=== PATIENT | male | born 1945 | race American Indian/Alaskan Native ===

== ENCOUNTER 2016-11-03 09:23 | Outpatient (CLI) | payer MEDICARE ==
--- NOTE | 2016-11-03 10:48 | Mammography Report ---
BONE DENSITY STUDY: DEFINITIONS: BMD = Bone Mineral Density T-score = BMD related to mean peak bone mass of young adult (mean expressed in Standard Deviation) Z-score = Age matched BMD expressed in SD World Health Organization (WHO) Diagnostic Criteria Normal T-score > -1 SD Osteopenia T-score between -1 and -2.4 SD Osteoporosis T-score -2.5 SD or below FINDINGS: The weighted average BMD of lumbar spine L1-L4 is 1.281 with a T-score of 1.7. The weighted average BMD of hip is 1.047 with a T-score of 0.1. IMPRESSION: The patient's T-score is diagnostic for normal bone density and low relative risk for fracture. NOTE: BMD is not the only risk factor for fracture; also consider factors such as the patient's age, risk of falling, previous osteoporotic fracture, family history of osteoporotic fractures, current smoker, and low body weight. Madison's triangle is a region of interest in femur, predominantly of trabecular bone. It is not a true anatomic site, and [facility] does not recommend its use clinically.
== END 2016-11-03 09:24 | disposition home or self-care (01) ==
LOC: MAMMO 09:23
DX: Z13.820 Encounter for screening for osteoporosis (principal)
CPT/HCPCS: 77080

== ENCOUNTER 2019-04-04 13:58 | Inpatient (IN) | payer MEDICARE ==
--- NOTE | 2019-04-04 14:20 | Emergency Department Report ---
ED Syncope HPI - General Stated Complaint: SYNCOPE Time Seen by Provider: 04/04/19 14:12 Source: patient, EMS Exam Limitations: no limitations - History of Present Illness Initial Comments: Patient is a 74-year-old male that presents emergency room with complaints of syncopal episode. Patient states he was at his rehabilitation facility and participating in rehabilitation. Patient states as he was walking with a walker, he became dizzy and lightheaded and passed out. Patient denies chest pain before and after syncopal episode. Patient states syncopal episode was brief. Patient states he was also diaphoretic. Patient denies symptoms at this time. Patient states he is back to normal. Patient denies chest pain shortness of breath. Timing/Prior Episodes: no prior history, single episode today Precipitating Factors: Positive: diaphoresis, lightheadedness Context: activity Loss of Consciousness: brief (seconds) Current Symptoms: back to normal - Related Data Allergies/Adverse Reactions: Allergies No Known Allergies Allergy (Verified 06/28/14 18:10) Home Medications: Ambulatory Orders Lisinopril [Zestril TAB] 40 mg PO QDAY #30 tablet 11/03/15 Beclomethasone Dipropionate [Qvar] 40 mcg IH Q4-6H PRN 05/09/16 Bupropion HCl [Bupropion HCl Sr] 150 mg PO BID 05/09/16 Fluticasone (Nf) [Flovent 44 MCG/PUFF HFA] 1 puff IH Q4-6H PRN 05/09/16 Pravastatin Sodium [Pravastatin] 20 mg PO QHS 05/09/16 amLODIPine [Norvasc] 10 mg PO DAILY 05/09/16 hydroCHLOROthiazide [HCTZ] 25 mg PO QDAY 05/09/16 traMADol [Ultram 50 MG tab] 50 mg PO Q6HR PRN #20 tablet 05/09/16 ED Review of Systems ROS: Stated complaint: SYNCOPE Other details as noted in HPI Constitutional: denies: chills, fever Eyes: denies: eye pain, eye discharge, vision change ENT: denies: ear pain, throat pain Respiratory: denies: cough, shortness of breath, wheezing Cardiovascular: denies: chest pain, palpitations Endocrine: no symptoms reported Gastrointestinal: denies: abdominal pain, nausea, diarrhea Genitourinary: denies: urgency, dysuria Musculoskeletal: denies: back pain, joint swelling, arthralgia Skin: denies: rash, lesions Neurological: denies: headache, weakness, paresthesias Psychiatric: denies: anxiety, depression Hematological/Lymphatic: denies: easy bleeding, easy bruising ED Past Medical Hx - Past Medical History Previous Medical History?: Yes Hx Hypertension: Yes Hx Diabetes: Yes Hx GERD: Yes Hx Renal Disease: Yes (renal insufficiency) Hx Arthritis: Yes (BOTH KNEES) Hx Asthma: Yes Hx Tuberculosis: Yes (POSITIVE SKIN TEST 1989- [place]- NEG CXR) - Surgical History Past Surgical History?: Yes Additional Surgical History: STAB TO ABD--EXPLORATORY - Family History Family history: no significant - Social History Smoking Status: Never Smoker Substance Use Type: None - Medications Home Medications: Home Medications Medication Instructions Recorded Confirmed Last Taken Type Lisinopril [Zestril TAB] 40 mg PO QDAY #30 tablet 11/03/15 05/09/16 12/31/15 Rx Beclomethasone Dipropionate [Qvar] 40 mcg IH Q4-6H PRN 05/09/16 05/09/16 Unknown History Bupropion HCl [Bupropion HCl Sr] 150 mg PO BID 05/09/16 05/09/16 Unknown History Fluticasone (Nf) [Flovent 44 1 puff IH Q4-6H PRN 05/09/16 05/09/16 Unknown History MCG/PUFF HFA] Pravastatin Sodium [Pravastatin] 20 mg PO QHS 05/09/16 05/09/16 Unknown History amLODIPine [Norvasc] 10 mg PO DAILY 05/09/16 05/09/16 Unknown History hydroCHLOROthiazide [HCTZ] 25 mg PO QDAY 05/09/16 05/09/16 Unknown History traMADol [Ultram 50 MG tab] 50 mg PO Q6HR PRN #20 tablet 05/09/16 Unknown Rx ED Physical Exam - General Limitations: No Limitations General appearance: alert, in no apparent distress - Head Head exam: Present: atraumatic, normocephalic - Eye Eye exam: Present: normal appearance, PERRL Pupils: Present: normal accommodation - ENT ENT exam: Present: mucous membranes moist - Neck Neck exam: Present: normal inspection - Respiratory Respiratory exam: Present: normal lung sounds bilaterally. Absent: respiratory distress, wheezes, rales - Cardiovascular Cardiovascular Exam: Present: regular rate, normal rhythm, normal heart sounds. Absent: systolic murmur, diastolic murmur, rubs, gallop - GI/Abdominal GI/Abdominal exam: Present: soft, normal bowel sounds - Rectal Rectal exam: Present: deferred - Extremities Exam Extremities exam: Present: normal inspection - Back Exam Back exam: Present: normal inspection - Neurological Exam Neurological exam: Present: alert, oriented X3 - Psychiatric Psychiatric exam: Present: normal affect, normal mood - Skin Skin exam: Present: warm, dry, intact, normal color. Absent: rash ED Course Vital Signs 04/04/19 04/04/19 04/04/19 14:22 14:52 15:22 Temperature 97.7 F Pulse Rate 95 H 86 Respiratory 20 20 15 Rate Blood Pressure 125/74 Blood Pressure 115/83 [Left] O2 Sat by Pulse 96 98 95 Oximetry 04/04/19 04/04/19 04/04/19 15:30 15:40 15:50 Temperature Pulse Rate 90 87 84 Respiratory 17 18 17 Rate Blood Pressure 115/83 115/83 115/83 Blood Pressure [Left] O2 Sat by Pulse 98 100 100 Oximetry 04/04/19 04/04/19 04/04/19 16:00 16:10 16:20 Temperature Pulse Rate 88 90 84 Respiratory 19 17 17 Rate Blood Pressure 115/83 137/87 137/87 Blood Pressure [Left] O2 Sat by Pulse 97 98 99 Oximetry 04/04/19 04/04/19 04/04/19 16:30 16:40 16:50 Temperature Pulse Rate 91 H 92 H 90 Respiratory 20 18 12 Rate Blood Pressure 137/87 137/87 137/87 Blood Pressure [Left] O2 Sat by Pulse 96 96 97 Oximetry 04/04/19 04/04/19 04/04/19 17:00 17:10 17:20 Temperature Pulse Rate 87 89 89 Respiratory 13 18 18 Rate Blood Pressure 137/87 146/92 146/92 Blood Pressure [Left] O2 Sat by Pulse 98 97 97 Oximetry 04/04/19 04/04/19 04/04/19 17:30 17:40 17:50 Temperature Pulse Rate 90 89 90 Respiratory 19 16 14 Rate Blood Pressure 146/92 146/92 146/92 Blood Pressure [Left] O2 Sat by Pulse 96 96 95 Oximetry 04/04/19 04/04/19 04/04/19 18:00 18:10 18:20 Temperature Pulse Rate 90 86 89 Respiratory 19 19 19 Rate Blood Pressure 146/92 147/87 147/87 Blood Pressure [Left] O2 Sat by Pulse 94 94 92 Oximetry 04/04/19 04/04/19 04/04/19 18:30 19:15 19:16 Temperature 98 F Pulse Rate 88 81 Respiratory 14 21 Rate Blood Pressure 147/87 147/87 Blood Pressure 131/100 [Left] O2 Sat by Pulse 91 97 98 Oximetry 04/04/19 04/04/19 04/04/19 19:20 19:30 19:40 Temperature Pulse Rate 86 85 83 Respiratory 21 17 20 Rate Blood Pressure 131/101 147/89 147/89 Blood Pressure [Left] O2 Sat by Pulse 97 96 96 Oximetry 04/04/19 04/04/19 04/04/19 19:50 20:00 20:10 Temperature Pulse Rate 87 88 83 Respiratory 20 21 20 Rate Blood Pressure 147/89 151/90 151/90 Blood Pressure [Left] O2 Sat by Pulse 95 94 95 Oximetry - Reevaluation(s) Reevaluation #1: I discussed all results with patient. I discussed plan of care with patient. Patient agrees plan of care and admission. Patient's nuclear scan is pending. Patient will be admitted to the hospital service. 04/04/19 17:43 - Consultations Consultation #1: Hospitalist consult for admission. Hospitalist admit patient. Bridge orders placed 04/04/19 17:44 ED Medical Decision Making - Lab Data Result diagrams: 04/04/19 14:27 04/04/19 14:27 - EKG Data -: EKG Interpreted by Me EKG shows normal: sinus rhythm, axis, intervals, QRS complexes, ST-T waves Rate: normal - Radiology Data Radiology results: report reviewed, image reviewed interpreted by me: No acute findings on chest x-ray. CT HEAD WITHOUT CONTRAST HISTORY: Syncope. TECHNIQUE: Axial imaging performed from the skull apex through the skull base without the use of contrast. All CT scans at this location are performed using CT dose reduction for ALARA by means of automated exposure control. COMPARISON: None FINDINGS: Parenchyma: No acute intracranial hemorrhage or parenchymal abnormality.. Mild hypoattenuation throughout the white matter is noted and consistent with chronic microvascular ischemic disease. Ventricles: There is mild diffuse brain atrophy with commensurate ventricular enlargement which is likely age appropriate. Soft tissues: Soft tissues including the orbits appear normal. Bones: No acute osseous abnormality. Sinuses: Sinuses and mastoid air cells are clear. IMPRESSION: No acute abnormality. Senescent changes. CHEST 1 VIEW INDICATION: Syncope. COMPARISON: None FINDINGS: Support devices: None. Heart: Within normal limits. Lungs/Pleura: No acute air space or interstitial disease. Additional findings: None. IMPRESSION: No acute findings. V/Q Scan HISTORY: syncope. elevated d-dimer. TECHNIQUE: Patient was given 17.99 mCi of xenon-133 and 3.33 mCi of technetium MAA. COMPARISON: Chest x-ray from today FINDINGS: No significant mismatch between ventilation and perfusion imaging. IMPRESSION: Low probability for PTE. - Medical Decision Making STEFANIE is a 74-year-old male that presents emergency room with complaints of syncope. Patient had multiple labs and diagnostics none. Patient's head CT negative. Patient's chest x-ray negative. Patient's labs remarkable for kidney insufficiency and elevated troponin elevated d-dimer. For the patient's elevated d-dimer a nuclear V/Q scan was done and it was negative. Patient admitted to the hospitalist service. - Differential Diagnosis PE. Syncope. Dehydration. Renal insufficiency Critical Care Time: Yes Critical care time in (mins) excluding proc time.: 35 Critical care attestation.: If time is entered above; I have spent that time in minutes in the direct care of this critically ill patient, excluding procedure time. Critical Care Time: 35 minutes ED Disposition Clinical Impression: Acute on chronic renal insufficiency, Dizziness, Elevated troponin, Elevated d- dimer, Dehydration CKD (chronic kidney disease) Qualifiers: Chronic kidney disease stage: unspecified stage Qualified Code(s): N18.9 - Chronic kidney disease, unspecified Syncope Qualifiers: Syncope type: unspecified Qualified Code(s): R55 - Syncope and collapse Disposition: OP ADMIT IP TO THIS HOSP Is pt being admited?: Yes Does the pt Need Aspirin: No Condition: Critical Time of Disposition: 17:43
--- NOTE | 2019-04-04 15:13 | XRay Report ---
CHEST 1 VIEW INDICATION: Syncope. COMPARISON: None FINDINGS: Support devices: None. Heart: Within normal limits. Lungs/Pleura: No acute air space or interstitial disease. Additional findings: None. IMPRESSION: No acute findings. Signer Name: Mehdi Avalos Jr, MD Signed: 04/04/2019 3:09 PM Workstation Name: [id number]
[2019-04-04 15:16] LABS: Creatine Kinase MB 6.8 ng/mL (0.0-4.0)
[2019-04-04 15:17] LABS: Albumin 3.1 g/dL (3.9-5); Calcium 9.5 mg/dL (8.4-10.2)
[2019-04-04 15:19] LABS: Basophils # (Auto) 0.1 K/mm3 (0.0-0.1); Eosinophils # (Auto) 0.1 K/mm3 (0.0-0.4); Eosinophils % (Auto) 2.5 % (0.0-4.3); Hematocrit 33.6 % (35.5-45.6); Hemoglobin 10.5 gm/dl (11.8-15.2); Lymphocytes # (Auto) 0.9 K/mm3 (1.2-5.4); Lymphocytes % (Auto) 15.7 % (13.4-35.0); Mean Corpuscular HGB Conc 31 % (32-34); Mean Corpuscular Volume 76 fl (84-94); Monocytes # (Auto) 0.6 K/mm3 (0.0-0.8); Monocytes % (Auto) 11.4 % (0.0-7.3); Platelet Count 411 K/mm3 (140-440); Red Blood Count 4.42 M/mm3 (3.65-5.03); Red Cell Distribution Width 18.2 % (13.2-15.2)
--- NOTE | 2019-04-04 15:27 | Cat Scan Report ---
CT HEAD WITHOUT CONTRAST HISTORY: Syncope. TECHNIQUE: Axial imaging performed from the skull apex through the skull base without the use of con trast. All CT scans at this location are performed using CT dose reduction for ALARA by means of aut omated exposure control. COMPARISON: None FINDINGS: Parenchyma: No acute intracranial hemorrhage or parenchymal abnormality.. Mild hypoattenuation thro ughout the white matter is noted and consistent with chronic microvascular ischemic disease. Ventricles: There is mild diffuse brain atrophy with commensurate ventricular enlargement which is l ikely age appropriate. Soft tissues: Soft tissues including the orbits appear normal. Bones: No acute osseous abnormality. Sinuses: Sinuses and mastoid air cells are clear. IMPRESSION: No acute abnormality. Senescent changes. Signer Name: Mehdi Avalos Jr, MD Signed: 04/04/2019 3:22 PM Workstation Name: [id number]
[2019-04-04 15:28] LABS: Chol/HDL Ratio 4.96 %
[2019-04-04] MEDS ORDERED: DEXTROSE 50% IN WATER (25GM) 50 ML SYRINGE IV ONE (16:29)
--- NOTE | 2019-04-04 19:08 | Nuclear Medicine Report ---
V/Q Scan HISTORY: syncope. elevated d-dimer. TECHNIQUE: Patient was given 17.99 mCi of xenon-133 and 3.33 mCi of technetium MAA. COMPARISON: Chest x-ray from today FINDINGS: No significant mismatch between ventilation and perfusion imaging. IMPRESSION: Low probability for PTE. Signer Name: Junior Alfredo MD Signed: 04/04/2019 7:03 PM Workstation Name: [id number]
[2019-04-04] MEDS ORDERED: FLUTICASONE IH PRN (20:41)
[2019-04-04] MEDS ORDERED: BECLOMETHASONE DIPROPIONATE 40 MCG IH PRN (20:41)
[2019-04-04] MEDS ORDERED: BUPROPION HCL 150 MG PO SCH (22:00)
[2019-04-04] MEDS ORDERED: NON-FORMULARY EACH (Pravastatin Sodium [Pravastatin] 20 MG) PO SCH (22:00)
[2019-04-04] MEDS: traMADol 50 MG TAB PO PRN (22:01)
[2019-04-04] MEDS: hydroCHLOROthiazide 25 MG TAB PO SCH (22:01)
[2019-04-04] MEDS: LISINOPRIL 40 MG TAB PO SCH (22:02)
[2019-04-04] MEDS: PRAVASTATIN 20 MG TAB PO SCH (22:02)
[2019-04-04] MEDS: buPROPion SR 150 MG TAB PO SCH (22:02)
[2019-04-04] MEDS: amLODIPine 10 MG TAB PO SCH (22:05)
--- NOTE | 2019-04-05 05:29 | History and Physical Report ---
History of Present Illness Date of examination: 04/04/19 Date of admission: 04/04/19 18:29 Chief complaint: Syncopal episode one hour ago History of present illness: 74-year-old male that presents emergency room with complaints of syncopal episode. Patient states he was at his rehabilitation facility and participating in rehabilitation. Patient states as he was walking with a walker, he became dizzy and lightheaded and passed out. Patient denies chest pain before and after syncopal episode. Patient states syncopal episode was brief. Patient states he was also diaphoretic. Patient denies symptoms at this time. Patient states he is back to normal. Patient denies chest pain shortness of breath. Past Medical History Previous Medical History?: Yes Hypertension: Yes Diabetes: Yes GERD: Yes Renal Disease: Yes (renal insufficiency) Arthritis: Yes (BOTH KNEES) Asthma: Yes Tuberculosis: Yes (POSITIVE SKIN TEST [place]- NEG CXR) Surgical History Past Surgical History?: Yes Additional Surgical History: STAB TO ABD--EXPLORATORY Family History Family history: no significant Social History Smoking Status: Never Smoker Substance Use Type: None Medications Home Medications: Home Medications Medication Instructions Recorded Confirmed Last Taken Type Lisinopril [Zestril TAB] 40 mg PO QDAY #30 tablet 11/03/15 05/09/16 12/31/15 Rx Beclomethasone Dipropionate [Qvar] 40 mcg IH Q4-6H PRN 05/09/16 05/09/16 Unknown History Bupropion HCl [Bupropion HCl Sr] 150 mg PO BID 05/09/16 05/09/16 Unknown History Fluticasone (Nf) [Flovent 44 1 puff IH Q4-6H PRN 05/09/16 05/09/16 Unknown History MCG/PUFF HFA] Pravastatin Sodium [Pravastatin] 20 mg PO QHS 05/09/16 05/09/16 Unknown History amLODIPine [Norvasc] 10 mg PO DAILY 05/09/16 05/09/16 Unknown History hydroCHLOROthiazide [HCTZ] 25 mg PO QDAY 05/09/16 05/09/16 Unknown History traMADol [Ultram 50 MG tab] 50 mg PO Q6HR PRN #20 tablet 05/09/16 Unknown Rx Review of Systems ROS: Stated complaint: SYNCOPE Other details as noted in HPI Constitutional: denies: chills, fever Eyes: denies: eye pain, eye discharge, vision change ENT: denies: ear pain, throat pain Respiratory: denies: cough, shortness of breath, wheezing Cardiovascular: denies: chest pain, palpitations Endocrine: no symptoms reported Gastrointestinal: denies: abdominal pain, nausea, diarrhea Genitourinary: denies: urgency, dysuria Musculoskeletal: denies: back pain, joint swelling, arthralgia Skin: denies: rash, lesions Neurological: denies: headache, weakness, paresthesias Psychiatric: denies: anxiety, depression Hematological/Lymphatic: denies: easy bleeding, easy bruising Medications and Allergies Allergies Allergy/AdvReac Type Severity Reaction Status Date / Time No Known Allergies Allergy Verified 06/28/14 18:10 Home Medications Medication Instructions Recorded Confirmed Last Taken Type Lisinopril [Zestril TAB] 40 mg PO QDAY #30 tablet 11/03/15 05/09/16 12/31/15 Rx Beclomethasone Dipropionate [Qvar] 40 mcg IH Q4-6H PRN 05/09/16 05/09/16 Unknown History Bupropion HCl [Bupropion HCl Sr] 150 mg PO BID 05/09/16 05/09/16 Unknown History Fluticasone (Nf) [Flovent 44 1 puff IH Q4-6H PRN 05/09/16 05/09/16 Unknown History MCG/PUFF HFA] Pravastatin Sodium [Pravastatin] 20 mg PO QHS 05/09/16 05/09/16 Unknown History amLODIPine [Norvasc] 10 mg PO DAILY 05/09/16 05/09/16 Unknown History hydroCHLOROthiazide [HCTZ] 25 mg PO QDAY 05/09/16 05/09/16 Unknown History traMADol [Ultram 50 MG tab] 50 mg PO Q6HR PRN #20 tablet 05/09/16 Unknown Rx Active Meds: Active Medications Amlodipine Besylate (Amlodipine) 10 mg PO DAILY [facility] Last Admin: 04/04/19 22:05 Dose: 10 mg Documented by: Bupropion HCl (Wellbutrin Sr) 150 mg PO BID [facility] Last Admin: 04/04/19 22:02 Dose: 150 mg Documented by: Hydrochlorothiazide (Hctz) 25 mg PO QDAY [facility] Last Admin: 11/06/19 22:01 Dose: 25 mg Documented by: Lisinopril (Zestril) 40 mg PO QDAY [facility] Last Admin: 04/04/19 22:02 Dose: 40 mg Documented by: Miscellaneous Medication (Beclomethasone Dipropionate [Qvar]) 40 mcg IH Q6H PRN PRN Reason: Shortness Of Breath Miscellaneous Medication (Fluticasone (Nf)) 1 puff IH Q4-6H PRN PRN Reason: Shortness Of Breath Pravastatin Sodium (Pravachol) 20 mg PO QHS [facility] Last Admin: 04/04/19 22:02 Dose: 20 mg Documented by: Tramadol HCl (Ultram) 50 mg PO Q6HR PRN PRN Reason: PAIN Last Admin: 04/04/19 22:01 Dose: 50 mg Documented by: Exam - Constitutional Vitals: Temp Pulse Resp BP Pulse Ox 98.0 F 101 H 18 148/95 96 04/05/19 03:50 04/05/19 03:50 04/05/19 03:50 04/05/19 03:50 04/05/19 03:50 General appearance: Present: no acute distress, well-nourished - EENT Eyes: Present: PERRL ENT: hearing intact, clear oral mucosa - Neck Neck: Present: supple, normal ROM - Respiratory Respiratory effort: normal Respiratory: bilateral: CTA - Cardiovascular Heart rate: 78 Rhythm: regular Heart Sounds: Present: S1 & S2. Absent: rub, click - Extremities Extremities: no ischemia, pulses intact, pulses symmetrical, No edema Peripheral Pulses: within normal limits - Abdominal General gastrointestinal: Present: soft, non-tender, non-distended, normal bowel sounds Male genitourinary: Present: normal - Rectal Rectal Exam: deferred - Integumentary Integumentary: Present: clear, warm, dry - Musculoskeletal Musculoskeletal: gait normal, strength equal bilaterally - Psychiatric Psychiatric: appropriate mood/affect, intact judgment & insight - Neurologic Neurologic: CNII-XII intact, moves all extremities - Allied Health Allied health notes reviewed: nursing, case management Results - Labs CBC & Chem 7: 04/04/19 14:27 04/04/19 14:27 Labs: Laboratory Last Values WBC 5.7 K/mm3 (4.5-11.0) 04/04/19 14:27 RBC 4.42 M/mm3 (3.65-5.03) 04/04/19 14:27 Hgb 10.5 gm/dl (11.8-15.2) L 04/04/19 14:27 Hct 33.6 % (35.5-45.6) L 04/04/19 14:27 MCV 76 fl (84-94) L 04/04/19 14:27 MCH 24 pg (28-32) L 04/04/19 14:27 MCHC 31 % (32-34) L 04/04/19 14:27 RDW 18.2 % (13.2-15.2) H 04/04/19 14:27 Plt Count 411 K/mm3 (140-440) 04/04/19 14:27 Lymph % (Auto) 15.7 % (13.4-35.0) 04/04/19 14:27 Benzie % (Auto) 11.4 % (0.0-7.3) H 04/04/19 14:27 Eos % (Auto) 2.5 % (0.0-4.3) 04/04/19 14:27 Baso % (Auto) 1.0 % (0.0-1.8) 04/04/19 14:27 Lymph # 0.9 K/mm3 (1.2-5.4) L 04/04/19 14:27 Benzie # 0.6 K/mm3 (0.0-0.8) 04/04/19 14:27 Eos # 0.1 K/mm3 (0.0-0.4) 04/04/19 14:27 Baso # 0.1 K/mm3 (0.0-0.1) 04/04/19 14:27 Seg Neutrophils % 69.4 % (40.0-70.0) 04/04/19 14:27 Seg Neutrophils # 3.9 K/mm3 (1.8-7.7) 04/04/19 14:27 D-Dimer > 19308 ng/mlDDU (0-234) H 04/04/19 14:27 Sodium 134 mmol/L (137-145) L 04/04/19 14:27 Potassium 3.8 mmol/L (3.6-5.0) 04/04/19 14:27 Chloride 99.1 mmol/L (98-107) 04/04/19 14:27 Carbon Dioxide 20 mmol/L (22-30) L 04/04/19 14:27 Anion Gap 19 mmol/L 04/04/19 14:27 BUN 22 mg/dL (9-20) H 04/04/19 14:27 Creatinine 1.8 mg/dL (0.8-1.5) H 04/04/19 14:27 Estimated GFR 45 ml/min 04/04/19 14:27 BUN/Creatinine Ratio 12 % 04/04/19 14:27 Glucose 102 mg/dL (75-100) H 04/04/19 14:27 POC Glucose 84 (70-105) 04/04/19 14:55 Calcium 9.5 mg/dL (8.4-10.2) 04/04/19 14:27 Total Bilirubin 0.20 mg/dL (0.1-1.2) 04/04/19 14:27 AST 16 units/L (5-40) 04/04/19 14:27 ALT 8 units/L (7-56) 04/04/19 14:27 Alkaline Phosphatase 75 units/L (35-129) 04/04/19 14:27 Total Creatine Kinase 209 units/L (55-170) H 04/04/19 14:27 CK-MB (CK-2) 6.8 ng/mL (0.0-4.0) H 04/04/19 14:27 CK-MB (CK-2) Rel Index 3.2 (0-4) 04/04/19 14:27 Troponin T 0.052 ng/mL (0.00-0.029) H 04/04/19 14:27 Total Protein 7.9 g/dL (6.3-8.2) 04/04/19 14:27 Albumin 3.1 g/dL (3.9-5) L 04/04/19 14:27 Albumin/Globulin Ratio 0.6 % 04/04/19 14:27 Triglycerides 51 mg/dL (2-149) 04/04/19 14:27 Cholesterol 144 mg/dL (50-199) 04/04/19 14:27 LDL Cholesterol Direct 108 mg/dL (50-130) 04/04/19 14:27 HDL Cholesterol 29 mg/dL (40-59) L 04/04/19 14:27 Cholesterol/HDL Ratio 4.96 % 04/04/19 14:27 Short CBC 04/04/19 Range/Units 14:27 WBC 5.7 (4.5-11.0) K/mm3 Hgb 10.5 L (11.8-15.2) gm/dl Hct 33.6 L (35.5-45.6) % Plt Count 411 (140-440) K/mm3 BMP 04/04/19 14:27 Sodium 134 L Potassium 3.8 Chloride 99.1 Carbon Dioxide 20 L BUN 22 H Creatinine 1.8 H Glucose 102 H Calcium 9.5 Cardiac Enzymes 04/04/19 Range/Units 14:27 Total Creatine Kinase 209 H (55-170) units/L CK-MB (CK-2) 6.8 H (0.0-4.0) ng/mL Troponin T 0.052 H (0.00-0.029) ng/mL Liver Function 04/04/19 Range/Units 14:27 Total Bilirubin 0.20 (0.1-1.2) mg/dL AST 16 (5-40) units/L ALT 8 (7-56) units/L Alkaline Phosphatase 75 (35-129) units/L Albumin 3.1 L (3.9-5) g/dL - Imaging and Cardiology EKG: report reviewed Chest x-ray: report reviewed (NAF) CT Scan - head: report reviewed (NAF) Imaging and Cardiology: V/q perfusion scan Low prob for PE EKG Data EKG Interpreted by Me EKG shows normal: sinus rhythm, axis, intervals, QRS complexes, ST-T waves Rate: normal Assessment and Plan Advance Directives: Yes (Full code) VTE prophylaxis?: Chemical Plan of care discussed with patient/family: Yes - Patient Problems (1) Syncope and collapse Current Visit: Yes Status: Acute Plan to address problem: Syncope work up ECHO Lexiscan CDS (2) HTN (hypertension) Current Visit: Yes Status: Chronic Qualifiers: Hypertension type: essential hypertension Qualified Code(s): I10 - Essential (primary) hypertension Plan to address problem: COnt antihypertensives (3) JENNY (acute kidney injury) Current Visit: Yes Status: Acute Plan to address problem: IV fluids for now Vasomotor Nephropathy (4) Type 2 diabetes mellitus Current Visit: No Status: Chronic Qualifiers: Diabetes mellitus snf insulin use: without snf use Plan to address problem: Coverage for now (5) HLD (hyperlipidemia) Current Visit: Yes Status: Chronic Qualifiers: Hyperlipidemia type: mixed hyperlipidemia Qualified Code(s): E78.2 - Mixed hyperlipidemia Plan to address problem: Cont statins (6) Chronic pain Current Visit: Yes Status: Acute (7) Chronic pain Current Visit: Yes Status: Chronic Qualifiers: Chronic pain type: other chronic pain Qualified Code(s): G89.29 - Other chronic pain Plan to address problem: Cont Tramadol prn (8) Depression Current Visit: Yes Status: Chronic Qualifiers: Depression Type: unspecified Qualified Code(s): F32.9 - Major depressive disorder, single episode, unspecified Plan to address problem: COnt Bupropiion (9) Allergic rhinitis Current Visit: Yes Status: Chronic Qualifiers: Allergic rhinitis trigger: unspecified Allergic rhinitis seasonality: non- seasonal Qualified Code(s): J30.89 - Other allergic rhinitis Plan to address problem: Cont Flonase (10) Asthma Current Visit: Yes Status: Inactive Qualifiers: Asthma persistence: intermittent Plan to address problem: Qvar prn (11) DVT prophylaxis Current Visit: Yes Status: Acute Plan to address problem: Initiated on Lovenox and GI prophylaxis
[2019-04-05] MEDS ORDERED: SODIUM CHLORIDE 0.9% 1000 ML 1,000 ML IV SCH (06:00)
[2019-04-05 06:35] LABS: Calcium 9.3 mg/dL (8.4-10.2)
[2019-04-05] MEDS: INSULIN LISPRO 100 UNIT/ML SUB-Q SCH ×4 (08:43→23:20)
--- NOTE | 2019-04-05 09:45 | Vascular Lab Report ---
"DUPLEX DOPPLER ULTRASOUND CAROTID, BILATERAL INDICATION: syncope. FINDINGS: RIGHT CAROTID: No significant atherosclerotic plaque. Right ICA peak systolic velocity: 109 cm/sec. Right Vertebral Artery: Antegrade flow. LEFT CAROTID: Left external carotid and common carotid artery are patent. The ICA is completely occlu ded and thrombosed. Left ICA peak systolic velocity: 0 cm/sec. Completely occluded Left Vertebral Artery: Antegrade flow. IMPRESSION: 1. Right Internal Carotid Artery: Less than 50% diameter stenosis. 2. Left Internal Carotid Artery: Completely occluded and thrombosed. Nurse Fitch was informed by e box cutter at [address] standard time on 04/05/2019 Velocity criteria are extrapolated from diameter data as defined by the Society of Radiologists in Ul trasound Consensus Conference, Radiology 2003; 229;340-346. Degree of Stenosis (%) || ICA PSV (cm/sec) || Plaque estimate (%) || ICA/CCA PSV Ratio Normal <125 None <2.0 <50 <125 <50 <2.0 50-69 125-230 50 2.0-4.0 70 but less than 100 >230 50 >4.0 Near occlusion High, low, or none visible variable Total occlusion None visible; no lumen N/A Signer Name: aLst Galeano MD Signed: 04/05/2019 9:40 AM Workstation Name: [id number]"
--- NOTE | 2019-04-05 10:26 | Progress Note ---
Assessment and Plan Assessment and plan: Patient is a 74 yo man with history of hypertension, DM type 2, GERD, asthma, OA, prior TB treatment and CKD who presents syncope after nausea, warm feeling with SOB. 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 Type 2 diabetes mellitus: SSI Coverage for now HLD (hyperlipidemia): Cont statins Hyponatremia, hypovolemia: treat with IVFs, monitor bmp closely Chronic pain: Cont Tramadol prn Depression: COnt Bupropion Allergic rhinitis: Cont Flonase Asthma by history: Qvar prn DVT/GERD prophylaxis: on Lovenox and GI prophylaxis full code Disposition: continue inpatient care, ECHO pending, stress test in AM, Vascular surgeon evaluation pending. History Interval history: Patient was seen and examined. Follow-up on current diagnosis of Syncope. Overnight uneventful. Patient denies any chest pain, shortness of breath, nausea/vomiting or severe headaches. Imaging, nursing note, chart, labs and old chart reviewed. Discussed with patient. Hospitalist Physical - Physical exam Narrative exam: GEN: WDWN, NAD, Awake, Alert, Orientated HEENT: NCAT, EOMI, PERRL, OP Clear NECK: supple, no adenopathy, no thyromegaly, no JVD CVS/HEART: RRR, normal S1S2, pulses present bilaterally CHEST/LUNGS: CTA B, Symmetrical chest expansion, good air entry bilaterally GI/Abdomen: soft, NTND, good bowel sounds, no guarding or rebound /Bladder: no suprapubic tenderness, no CVA or paraspinal tenderness EXT/Skin: no c/c/e, no obvious rash MSK: FROM x 4 Neuro: CN 2-12 grossly intact, no new focal deficits Psych: calm - Constitutional Vitals: Temp Pulse Resp BP Pulse Ox 98.4 F 95 H 18 151/93 94 04/05/19 08:29 04/05/19 08:29 04/05/19 08:29 04/05/19 08:29 04/05/19 08:29 General appearance: Present: no acute distress, well-nourished Results - Labs CBC & Chem 7: 04/04/19 14:27 04/05/19 06:03 Labs: Laboratory Last Values WBC 5.7 K/mm3 (4.5-11.0) 04/04/19 14:27 RBC 4.42 M/mm3 (3.65-5.03) 04/04/19 14:27 Hgb 10.5 gm/dl (11.8-15.2) L 04/04/19 14:27 Hct 33.6 % (35.5-45.6) L 04/04/19 14:27 MCV 76 fl (84-94) L 04/04/19 14:27 MCH 24 pg (28-32) L 04/04/19 14: MCHC 31 % (32-34) L 04/04/19 14:27 RDW 18.2 % (13.2-15.2) H 04/04/19 14:27 Plt Count 411 K/mm3 (140-440) 04/04/19 14:27 Lymph % (Auto) 15.7 % (13.4-35.0) 04/04/19 14:27 [place] % (Auto) 11.4 % (0.0-7.3) H 04/04/19 14:27 Eos % (Auto) 2.5 % (0.0-4.3) 04/04/19 14:27 Baso % (Auto) 1.0 % (0.0-1.8) 04/04/19 14:27 Lymph # 0.9 K/mm3 (1.2-5.4) L 04/04/19 14:27 [place] # 0.6 K/mm3 (0.0-0.8) 04/04/19 14:27 Eos # 0.1 K/mm3 (0.0-0.4) 04/04/19 14:27 Baso # 0.1 K/mm3 (0.0-0.1) 04/04/19 14:27 Seg Neutrophils % 69.4 % (40.0-70.0) 04/04/19 14:27 Seg Neutrophils # 3.9 K/mm3 (1.8-7.7) 04/04/19 14:27 D-Dimer > 42479 ng/mlDDU (0-234) H 04/04/19 14:27 Sodium 135 mmol/L (137-145) L 04/05/19 06:03 Potassium 4.1 mmol/L (3.6-5.0) 04/05/19 06:03 Chloride 100.8 mmol/L (98-107) 04/05/19 06:03 Carbon Dioxide 21 mmol/L (22-30) L 04/05/19 06:03 Anion Gap 17 mmol/L 04/05/19 06:03 BUN 19 mg/dL (9-20) 04/05/19 06:03 Creatinine 1.6 mg/dL (0.8-1.5) H 04/05/19 06:03 Estimated GFR 52 ml/min 04/05/19 06:03 BUN/Creatinine Ratio 12 % 04/05/19 06:03 Glucose 83 mg/dL (75-100) 04/05/19 06:03 POC Glucose 72 (70-105) 04/05/19 08:35 Calcium 9.3 mg/dL (8.4-10.2) 04/05/19 06:03 Total Bilirubin 0.20 mg/dL (0.1-1.2) 04/04/19 14:27 AST 16 units/L (5-40) 04/04/19 14:27 ALT 8 units/L (7-56) 04/04/19 14:27 Alkaline Phosphatase 75 units/L (35-129) 04/04/19 14:27 Total Creatine Kinase 209 units/L (55-170) H 04/04/19 14:27 CK-MB (CK-2) 6.8 ng/mL (0.0-4.0) H 04/04/19 14:27 CK-MB (CK-2) Rel Index 3.2 (0-4) 04/04/19 14:27 Troponin T 0.050 ng/mL (0.00-0.029) H 04/05/19 08:24 Total Protein 7.9 g/dL (6.3-8.2) 04/04/19 14:27 Albumin 3.1 g/dL (3.9-5) L 04/04/19 14:27 Albumin/Globulin Ratio 0.6 % 04/04/19 14:27 Triglycerides 51 mg/dL (2-149) 04/04/19 14:27 Cholesterol 144 mg/dL (50-199) 04/04/19 14:27 LDL Cholesterol Direct 108 mg/dL (50-130) 04/04/19 14:27 HDL Cholesterol 29 mg/dL (40-59) L 04/04/19 14:27 Cholesterol/HDL Ratio 4.96 % 04/04/19 14:27 Active Medications - Current Medications Current Medications: Generic Name Dose Route Start Last Admin Trade Name Freq PRN Reason Stop Dose Admin Amlodipine Besylate 10 mg 04/04/19 21:00 04/04/19 22:05 Amlodipine PO 10 mg DAILY NOLAN Administration Bupropion HCl 150 mg 04/04/19 22:00 04/04/19 22:02 Wellbutrin Sr PO 150 mg BID NOLAN Administration Enoxaparin Sodium 40 mg 04/05/19 22:00 Enoxaparin SUB-Q QDAY@2200 [facility] Hydrochlorothiazide 25 mg 04/04/19 21:00 04/04/19 22:01 Hctz PO 25 mg QDAY [facility] Administration Sodium Chloride 1,000 mls @ 75 mls/hr 04/05/19 06:00 Nacl 0.9% 1000 Ml IV DIRECT [facility] Insulin Human Lispro 0 unit 04/05/19 07:30 04/05/19 08:43 Humalog SUB-Q Not Given ACHS [facility] Protocol Lisinopril 40 mg 04/04/19 21:00 04/04/19 22:02 Zestril PO 40 mg QDAY [facility] Administration Miscellaneous Medication 40 mcg 04/04/19 20:41 Beclomethasone Dipropionate [Qvar] IH Q6H PRN Shortness Of Breath Miscellaneous Medication 1 puff 04/04/19 20:41 Fluticasone (Nf) IH Q4-6H PRN Shortness Of Breath Pravastatin Sodium 20 mg 04/04/19 22:00 04/04/19 22:02 Pravachol PO 20 mg QHS NOLAN Administration Tramadol HCl 50 mg 04/04/19 20:41 04/04/19 22:01 Ultram PO 50 mg Q6HR PRN Administration PAIN
--- NOTE | 2019-04-05 11:04 | Consultation ---
History of Present Illness - Reason for Consult Consult date: 04/05/19 occluded left internal carotid artery - History of Present Illness Patient with a history of syncopal episode in which he presented to the emergency department. His carotid ultrasound demonstrates complete occlusion of his left internal carotid artery. He does not have a history of stroke. At time of examination, the patient had no lateralizing symptoms. His return to his baseline neurologic status. Medications and Allergies Allergies Allergy/AdvReac Type Severity Reaction Status Date / Time No Known Allergies Allergy Verified 06/28/14 18:10 Home Medications Medication Instructions Recorded Confirmed Last Taken Type Lisinopril [Zestril TAB] 40 mg PO QDAY #30 tablet 11/03/15 05/09/16 12/31/15 Rx Beclomethasone Dipropionate [Qvar] 40 mcg IH Q4-6H PRN 05/09/16 05/09/16 Unknown History Bupropion HCl [Bupropion HCl Sr] 150 mg PO BID 05/09/16 05/09/16 Unknown History Fluticasone (Nf) [Flovent 44 1 puff IH Q4-6H PRN 05/09/16 05/09/16 Unknown History MCG/PUFF HFA] Pravastatin Sodium [Pravastatin] 20 mg PO QHS 05/09/16 05/09/16 Unknown History amLODIPine [Norvasc] 10 mg PO DAILY 05/09/16 05/09/16 Unknown History hydroCHLOROthiazide [HCTZ] 25 mg PO QDAY 05/09/16 05/09/16 Unknown History traMADol [Ultram 50 MG tab] 50 mg PO Q6HR PRN #20 tablet 05/09/16 Unknown Rx Active Meds: Active Medications Amlodipine Besylate (Amlodipine) 10 mg PO DAILY COUNTS INCLUDE 234 BEDS AT THE [facility] Last Admin: 04/04/19 22:05 Dose: 10 mg Documented by: Bupropion HCl (Wellbutrin Sr) 150 mg PO BID COUNTS INCLUDE 234 BEDS AT THE [facility] Last Admin: 04/04/19 22:02 Dose: 150 mg Documented by: Enoxaparin Sodium (Enoxaparin) 40 mg SUB-Q QDAY@2200 [facility] Hydrochlorothiazide (Hctz) 25 mg PO QDAY COUNTS INCLUDE 234 BEDS AT THE [facility] Last Admin: 04/04/19 22:01 Dose: 25 mg Documented by: Sodium Chloride (Nacl 0.9% 1000 Ml) 1,000 mls @ 75 mls/hr IV DIRECT COUNTS INCLUDE 234 BEDS AT THE [facility] Insulin Human Lispro (Humalog) 0 unit SUB-Q ACHS COUNTS INCLUDE 234 BEDS AT THE [facility]; Protocol Last Admin: 04/05/19 08:43 Dose: Not Given Documented by: Lisinopril (Zestril) 40 mg PO QDAY COUNTS INCLUDE 234 BEDS AT THE [facility] Last Admin: 04/04/19 22:02 Dose: 40 mg Documented by: Miscellaneous Medication (Beclomethasone Dipropionate [Qvar]) 40 mcg IH Q6H PRN PRN Reason: Shortness Of Breath Miscellaneous Medication (Fluticasone (Nf)) 1 puff IH Q4-6H PRN PRN Reason: Shortness Of Breath Pravastatin Sodium (Pravachol) 20 mg PO QHS COUNTS INCLUDE 234 BEDS AT THE [facility] Last Admin: 04/04/19 22:02 Dose: 20 mg Documented by: Tramadol HCl (Ultram) 50 mg PO Q6HR PRN PRN Reason: PAIN Last Admin: 04/04/19 22:01 Dose: 50 mg Documented by: Review of Systems All systems: negative Exam - Constitutional Vitals: Temp Pulse Resp BP Pulse Ox 98.4 F 95 H 18 151/93 94 04/05/19 08:29 04/05/19 08:29 04/05/19 08:29 04/05/19 08:29 04/05/19 08:29 General appearance: Present: no acute distress - EENT Eyes: Present: EOM intact ENT: hearing intact - Neck Neck: Present: supple - Respiratory Respiratory effort: normal - Abdominal General gastrointestinal: Present: deferred Male genitourinary: Present: deferred - Rectal Rectal Exam: deferred - Musculoskeletal Musculoskeletal: strength equal bilaterally - Psychiatric Psychiatric: appropriate mood/affect, cooperative - Neurologic Neurologic: no focal deficits Results - Labs CBC & Chem 7: 04/04/19 14:27 04/05/19 06:03 Labs: Abnormal lab results 04/04/19 04/04/19 04/04/19 Range/Units 14:27 14:27 14:27 Hgb 10.5 L (11.8-15.2) gm/dl Hct 33.6 L (35.5-45.6) % MCV 76 L (84-94) fl MCH 24 L (28-32) pg MCHC 31 L (32-34) % RDW 18.2 H (13.2-15.2) % [place] % (Auto) 11.4 H (0.0-7.3) % Lymph # 0.9 L (1.2-5.4) K/mm3 D-Dimer > 50963 H (0-234) ng/mlDDU Sodium 134 L (137-145) mmol/L Carbon Dioxide 20 L (22-30) mmol/L BUN 22 H (9-20) mg/dL Creatinine 1.8 H (0.8-1.5) mg/dL Glucose 102 H (75-100) mg/dL Total Creatine Kinase 209 H (55-170) units/L CK-MB (CK-2) 6.8 H (0.0-4.0) ng/mL Troponin T 0.052 H (0.00-0.029) ng/mL Albumin 3.1 L (3.9-5) g/dL HDL Cholesterol 29 L (40-59) mg/dL 04/05/19 04/05/19 Range/Units 06:03 08:24 Hgb (11.8-15.2) gm/dl Hct (35.5-45.6) % MCV (84-94) fl MCH (28-32) pg MCHC (32-34) % RDW (13.2-15.2) % [place] % (Auto) (0.0-7.3) % Lymph # (1.2-5.4) K/mm3 D-Dimer (0-234) ng/mlDDU Sodium 135 L (137-145) mmol/L Carbon Dioxide 21 L (22-30) mmol/L BUN (9-20) mg/dL Creatinine 1.6 H (0.8-1.5) mg/dL Glucose (75-100) mg/dL Total Creatine Kinase (55-170) units/L CK-MB (CK-2) (0.0-4.0) ng/mL Troponin T 0.050 H (0.00-0.029) ng/mL Albumin (3.9-5) g/dL HDL Cholesterol (40-59) mg/dL - Imaging and Cardiology CT Scan - head: report reviewed Venous US: report reviewed (carotid ultrasound), image reviewed Assessment and Plan Patient with what appears to be complete occlusion of the left internal carotid artery without lateralizing symptoms. He will received a CTA of the head and neck today. Additionally, given the patient's syncopal episodes, patient is undergoing a cardiac workup.
[2019-04-05] MEDS: amLODIPine 10 MG TAB PO SCH (11:08)
[2019-04-05] MEDS: LISINOPRIL 40 MG TAB PO SCH (11:08)
[2019-04-05] MEDS: buPROPion SR 150 MG TAB PO SCH ×2 (11:08→23:16)
[2019-04-05] MEDS: hydroCHLOROthiazide 25 MG TAB PO SCH (11:08)
[2019-04-05] MEDS ORDERED: DEXTROSE 50% IN WATER (25GM) 50 ML SYRINGE IV ONE (18:10)
--- NOTE | 2019-04-05 19:25 | Cat Scan Report ---
CT angio head INDICATION / CLINICAL INFORMATION: 74 years Male; occluded left ICA. TECHNIQUE: Thin cut axial images obtained through the head during IV bolus contrast administration. S agittal, coronal, and 3 plane MIP reconstructions performed by the technologist. NASCET type criteria used evaluate stenoses. Automated exposure control utilized for radiation reduction purposes. COMPARISON: None available. FINDINGS: INTERNAL CAROTID ARTERIES: The right internal carotid artery is widely patent. Mild atherosclerotic d isease noted. However, no flow is seen in the carotid canal portion of the left internal carotid artery. There is m ild flow in the communicating and anterior genu of the cavernous portions of the left internal caroti d artery which may be secondary to retrograde flow. VERTEBROBASILAR SYSTEM: No significant narrowing appreciated. DISTAL BRANCHES: Distal branches of the anterior, middle, and posterior cerebral arteries are fairly symmetric in appearance and number. ANEURYSM: None identified. ADDITIONAL FINDINGS: Small lipoma seen superficial left frontal bone-of no clinical significance. Mild to moderate mucosal thickening seen in the ethmoids on the left. Temporomandibular joint disease noted on the right. IMPRESSION: Absence of flow seen in portions of the left internal carotid artery as described above. Signer Name: Stalin Ruiz MD, III Signed: 04/05/2019 7:21 PM Workstation Name: [id number]
--- NOTE | 2019-04-05 19:38 | Cat Scan Report ---
CTA neck without and with intravenous contrast material CLINICAL HISTORY: occluded left ICA TECHNIQUE: Following acquisition of a timing bolus 1.25 mm thick contiguous axial scans were obtained from aorti c arch to the skull base during rapid bolus intravenous contrast infusion. In addition to evaluation of axial source images multiplanar reconstructions were produced and reviewed for this report. 3 plan e MIP reconstructions were produced and reviewed for this report. FINDINGS: Thoracic aorta: Contour deformity along the course of the thoracic aorta indicates the presence of so ft atherosclerotic plaque. Calcified plaque is present at the origin of the left subclavian artery. T here is no associated stenosis. Brachiocephalic artery and right subclavian artery have an unremarkab le appearance. Right carotid artery: Right common carotid artery has an unremarkable appearance as does the right ca rotid bifurcation. Cervical portions of the right internal carotid artery have an unremarkable appear ance with no indication of stenosis. Left carotid artery: Left common carotid artery has a normal appearance. There is occlusion of the or igin of the LICA at the level of the carotid bulb. There is no contrast opacification of the cervical segments of the LICA. Retrograde flow is noted in the supraclinoid this region. Left vertebral artery is dominant. There is no indication of atherosclerotic disease along the course the vertebral arteries. There is no indication of stenosis along the course of the vertebral arterie s. Both vertebral arteries contribute to the basilar artery origin. The basilar artery is incompletel y evaluated on this study. The degree of stenosis, if any, is determined utilizing NASCET like criteria. In this case there is complete occlusion at the origin of the LICA. Evaluation of the nonvascular soft tissue structures reveal no abnormality. There is no indication of cervical lymphadenopathy. No abnormalities are seen along the course of the airway. Visualized porti ons of the parotid glands and the submandibular salivary glands have a normal appearance. Thyroid gla nd has a normal appearance. Evaluation of the lung apices reveals no evidence of lung nodule or infil trate. Evaluation of the cervical spine is remarkable for widespread cervical spondylosis with multif ocal neuroforaminal narrowing. There is no indication of central canal stenosis. IMPRESSION: 1. Complete occlusion is demonstrated at the origin of the LICA. 2. There is no other indication of large vessel occlusion or hemodynamically significant stenosis. All CT examinations performed at this facility utilize modulated dose reduction, iterative reconstruc tion or weight-based dosing, as appropriate, to obtain a radiation dose which is as low as can reason ably be achieved. Signer Name: Trever Fischer MD Signed: 04/05/2019 7:33 PM Workstation Name: [id number]
[2019-04-05 19:40] LABS: Bilirubin,Urine NEG (Negative); Blood,Urine NEG (Negative); Color,Urine Yellow (Yellow); Mucus,Urine FEW /HPF; Protein,Urine <15 mg/dL mg/dL (Negative); Urobilinogen,Urine < 2.0 mg/dL (<2.0)
[2019-04-05] MEDS: ENOXAPARIN 40 MG/0.4 ML INJ SUB-Q SCH (23:16)
[2019-04-05] MEDS: PRAVASTATIN 20 MG TAB PO SCH (23:16)
[2019-04-05] MEDS: traMADol 50 MG TAB PO PRN (23:16)
[2019-04-06] MEDS ORDERED: REGADENOSON 0.4 MG/5 ML INJ IV ONE (08:07)
[2019-04-06] MEDS: INSULIN LISPRO 100 UNIT/ML SUB-Q SCH ×4 (08:29→23:07)
--- NOTE | 2019-04-06 10:46 | Treadmill Report ---
INDICATION: Chest pain. ORDERING PHYSICIAN: Dr. Jenny Collins. FINDINGS: There is no scintigraphic evidence of myocardial ischemia. The left ventricle is normal in size. The left ventricular ejection fraction is measured at 60%. There is normal wall motion and wall thickening on gated imaging. CONCLUSION: Normal perfusion scan. JOB# [id number] TAURUS/LIAT
[2019-04-06] MEDS: hydroCHLOROthiazide 25 MG TAB PO SCH (11:26)
[2019-04-06] MEDS: LISINOPRIL 40 MG TAB PO SCH (11:26)
[2019-04-06] MEDS: amLODIPine 10 MG TAB PO SCH (11:26)
[2019-04-06] MEDS: buPROPion SR 150 MG TAB PO SCH ×2 (11:26→23:07)
--- NOTE | 2019-04-06 15:09 | Progress Note ---
Assessment and Plan Assessment and plan: Patient is a 74 yo man with history of hypertension, DM type 2, GERD, asthma, OA, prior TB treatment and CKD who presents syncope after nausea, warm feeling with SOB. v/q scan reported low probability for PE Syncope and collapse: Syncope work up, Echo, stress test Left carotid Artery Occlusion: probably non-surgical, treat medically but consulted Vascular surgeon, input noted HTN (hypertension) COnt antihypertensives JENNY (acute kidney injury) suspected Vasomotor Nephropathy: treat with IVF, monitor bmp closely Elevated troponin, mild, most likely type 2 mi, renal failure related: ECHO pending. Type 2 diabetes mellitus: SSI Coverage for now HLD (hyperlipidemia): Cont statins Hyponatremia, hypovolemia: treat with IVFs, monitor bmp closely Chronic pain: Cont Tramadol prn Depression: COnt Bupropion Allergic rhinitis: Cont Flonase Asthma by history: Qvar prn DVT/GERD prophylaxis: on Lovenox and GI prophylaxis full code Disposition: continue inpatient care, ECHO reviewed, stress test today, TTE Conclusions: Global LV systolic function is at the lower limits of normal, estimated EF 50-55%, the basal anteroseptal, basal inferoseptal wall segments are hypokinectic suggesting the presence of CAD, mild concentric LVH, trace MR, left atrium is mildly dilated, a prominent eustachian valve is noted in the right atrium. History Interval history: Patient was seen and examined. Follow-up on current diagnosis of Syncope. Overnight uneventful. Patient denies any chest pain, shortness of breath, nausea/vomiting or severe headaches. Imaging, nursing note, chart, labs and old chart reviewed. Discussed with patient. Hospitalist Physical - Physical exam Narrative exam: GEN: WDWN, NAD, Awake, Alert, Orientated HEENT: NCAT, EOMI, PERRL, OP Clear NECK: supple, no adenopathy, no thyromegaly, no JVD CVS/HEART: RRR, normal S1S2, pulses present bilaterally CHEST/LUNGS: CTA B, Symmetrical chest expansion, good air entry bilaterally GI/Abdomen: soft, NTND, good bowel sounds, no guarding or rebound /Bladder: no suprapubic tenderness, no CVA or paraspinal tenderness EXT/Skin: no c/c/e, no obvious rash MSK: FROM x 4 Neuro: CN 2-12 grossly intact, no new focal deficits Psych: calm - Constitutional Vitals: Temp Pulse Resp BP Pulse Ox 98.2 F 99 H 19 139/87 96 04/06/19 08:00 04/06/19 11:26 04/06/19 08:00 04/06/19 11:26 04/06/19 08:00 General appearance: Present: no acute distress Results - Labs CBC & Chem 7: 04/04/19 14:27 04/05/19 06:03 Labs: Laboratory Last Values WBC 5.7 K/mm3 (4.5-11.0) 04/04/19 14:27 RBC 4.42 M/mm3 (3.65-5.03) 04/04/19 14:27 Hgb 10.5 gm/dl (11.8-15.2) L 04/04/19 14:27 Hct 33.6 % (35.5-45.6) L 04/04/19 14:27 MCV 76 fl (84-94) L 04/04/19 14:27 MCH 24 pg (28-32) L 04/04/19 14:27 MCHC 31 % (32-34) L 04/04/19 14:27 RDW 18.2 % (13.2-15.2) H 04/04/19 14:27 Plt Count 411 K/mm3 (140-440) 04/04/19 14:27 Lymph % (Auto) 15.7 % (13.4-35.0) 04/04/19 14:27 [place] % (Auto) 11.4 % (0.0-7.3) H 04/04/19 14:27 Eos % (Auto) 2.5 % (0.0-4.3) 04/04/19 14:27 Baso % (Auto) 1.0 % (0.0-1.8) 04/04/19 14:27 Lymph # 0.9 K/mm3 (1.2-5.4) L 04/04/19 14:27 [place] # 0.6 K/mm3 (0.0-0.8) 04/04/19 14:27 Eos # 0.1 K/mm3 (0.0-0.4) 04/04/19 14:27 Baso # 0.1 K/mm3 (0.0-0.1) 04/04/19 14:27 Seg Neutrophils % 69.4 % (40.0-70.0) 04/04/19 14:27 Seg Neutrophils # 3.9 K/mm3 (1.8-7.7) 04/04/19 14:27 D-Dimer > 02099 ng/mlDDU (0-234) H 04/04/19 14:27 Sodium 135 mmol/L (137-145) L 04/05/19 06:03 Potassium 4.1 mmol/L (3.6-5.0) 04/05/19 06:03 Chloride 100.8 mmol/L (98-107) 04/05/19 06:03 Carbon Dioxide 21 mmol/L (22-30) L 04/05/19 06:03 Anion Gap 17 mmol/L 04/05/19 06:03 BUN 19 mg/dL (9-20) 04/05/19 06:03 Creatinine 1.6 mg/dL (0.8-1.5) H 04/05/19 06:03 Estimated GFR 52 ml/min 04/05/19 06:03 BUN/Creatinine Ratio 12 % 04/05/19 06:03 Glucose 83 mg/dL (75-100) 04/05/19 06:03 POC Glucose 74 (70-105) 04/06/19 12:15 Calcium 9.3 mg/dL (8.4-10.2) 04/05/19 06:03 Total Bilirubin 0.20 mg/dL (0.1-1.2) 04/04/19 14:27 AST 16 units/L (5-40) 04/04/19 14:27 ALT 8 units/L (7-56) 04/04/19 14:27 Alkaline Phosphatase 75 units/L (35-129) 04/04/19 14:27 Total Creatine Kinase 209 units/L (55-170) H 04/04/19 14:27 CK-MB (CK-2) 6.8 ng/mL (0.0-4.0) H 04/04/19 14:27 CK-MB (CK-2) Rel Index 3.2 (0-4) 04/04/19 14:27 Troponin T 0.050 ng/mL (0.00-0.029) H 04/05/19 08:24 Total Protein 7.9 g/dL (6.3-8.2) 04/04/19 14:27 Albumin 3.1 g/dL (3.9-5) L 04/04/19 14:27 Albumin/Globulin Ratio 0.6 % 04/04/19 14:27 Triglycerides 51 mg/dL (2-149) 04/04/19 14:27 Cholesterol 144 mg/dL (50-199) 04/04/19 14:27 LDL Cholesterol Direct 108 mg/dL (50-130) 04/04/19 14:27 HDL Cholesterol 29 mg/dL (40-59) L 04/04/19 14:27 Cholesterol/HDL Ratio 4.96 % 04/04/19 14:27 Urine Color Yellow (Yellow) 04/05/19 Unknown Urine Turbidity Clear (Clear) 04/05/19 Unknown Urine pH 6.0 (5.0-7.0) 04/05/19 Unknown Ur Specific [place] 1.023 (1.003-1.030) 04/05/19 Unknown Urine Protein <15 mg/dl mg/dL (Negative) 04/05/19 Unknown Urine Glucose (UA) Neg mg/dL (Negative) 04/05/19 Unknown Urine Ketones Neg mg/dL (Negative) 04/05/19 Unknown Urine Blood Neg (Negative) 04/05/19 Unknown Urine Nitrite Neg (Negative) 04/05/19 Unknown Urine Bilirubin Neg (Negative) 04/05/19 Unknown Urine Urobilinogen < 2.0 mg/dL (<2.0) 04/05/19 Unknown Ur Leukocyte Esterase Neg (Negative) 04/05/19 Unknown Urine WBC (Auto) 1.0 /HPF (0.0-6.0) 04/05/19 Unknown Urine RBC (Auto) 1.0 /HPF (0.0-6.0) 04/05/19 Unknown U Epithel Cells (Auto) < 1.0 /HPF (0-13.0) 04/05/19 Unknown Urine Mucus Few /HPF 04/05/19 Unknown Active Medications - Current Medications Current Medications: Generic Name Dose Route Start Last Admin Trade Name Freq PRN Reason Stop Dose Admin Amlodipine Besylate 10 mg 04/04/19 21:00 04/06/19 11:26 Amlodipine PO 10 mg DAILY NOLAN Administration Bupropion HCl 150 mg 04/04/19 22:00 04/06/19 11:26 Wellbutrin Sr PO 150 mg BID NOLAN Administration Enoxaparin Sodium 40 mg 04/05/19 22:00 04/05/19 23:16 Enoxaparin SUB-Q 40 mg QDAY@2200 N[facility]AN Administration Hydrochlorothiazide 25 mg 04/04/19 21:00 04/06/19 11:26 Hctz PO 25 mg QDAY NOLAN Administration Sodium Chloride 1,000 mls @ 75 mls/hr 04/05/19 06:00 Nacl 0.9% 1000 Ml IV DIRECT NOLAN Insulin Human Lispro 0 unit 04/05/19 07:30 04/06/19 12:10 Humalog SUB-Q Not Given [facility] Protocol Lisinopril 40 mg 04/04/19 21:00 04/06/19 11:26 Zestril PO 40 mg QDAY NOLAN Administration Miscellaneous Medication 40 mcg 04/04/19 20:41 Beclomethasone Dipropionate [Qvar] IH Q6H PRN Shortness Of Breath Miscellaneous Medication 1 puff 04/04/19 20:41 Fluticasone (Nf) IH Q4-6H PRN Shortness Of Breath Pravastatin Sodium 20 mg 04/04/19 22:00 04/05/19 23:16 Pravachol PO 20 mg QHS NOLAN Administration Tramadol HCl 50 mg 04/04/19 20:41 04/05/19 23:16 Ultram PO 50 mg Q6HR PRN Administration PAIN
--- NOTE | 2019-04-06 15:33 | Progress Note ---
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 Would recommend that the patient be placed on Plavix indefinitely. He can follow up in our office in 2 weeks. Subjective Date of service: 04/06/19 Principal diagnosis: Left ICA occlusion Interval history: Patient with a history of a syncopal episode which brought him to the hospital. Carotid ultrasound and now CTA of the head and neck demonstrated occlusion of his left internal carotid artery. There appears to be hypertrophy of his left vertebral artery. His right common carotid and internal carotid arteries widely patent. Intact [place]. His pre-presentation symptoms have resolved and he has returned to his baseline. No complaints. No lateralizing symptoms. Objective - Constitutional Vitals: Vital Signs - 12hr 04/06/19 04/06/19 04/06/19 04:18 05:56 07:22 Temperature 98.2 F 98.2 F Pulse Rate 98 H 90 98 H Respiratory 20 18 Rate Blood Pressure 144/92 138/94 Blood Pressure [Left] O2 Sat by Pulse 96 92 Oximetry 04/06/19 04/06/19 04/06/19 08:00 08:36 08:43 Temperature 98.2 F Pulse Rate 98 H Respiratory 19 Rate Blood Pressure 154/96 142/92 Blood Pressure 138/94 [Left] O2 Sat by Pulse 96 Oximetry 04/06/19 04/06/19 04/06/19 08:48 08:50 08:51 Temperature Pulse Rate Respiratory Rate Blood Pressure 139/86 140/92 145/93 Blood Pressure [Left] O2 Sat by Pulse Oximetry 04/06/19 04/06/19 04/06/19 08:53 08:54 08:55 Temperature Pulse Rate Respiratory Rate Blood Pressure 142/88 142/89 146/91 Blood Pressure [Left] O2 Sat by Pulse Oximetry 04/06/19 04/06/19 08:56 11:26 Temperature Pulse Rate 99 H Respiratory Rate Blood Pressure 144/88 139/87 Blood Pressure [Left] O2 Sat by Pulse Oximetry General appearance: Present: no acute distress - EENT Eyes: EOM intact ENT: hearing intact - Neck Neck: supple, normal ROM - Respiratory Respiratory effort: normal Extremities: Full ROM - Gastrointestinal General gastrointestinal: Present: deferred Rectal Exam: deferred - Genitourinary Male genitourinary: deferred - Neurologic Neurologic: no focal deficits - Labs CBC & Chem 7: 04/04/19 14:27 04/05/19 06:03 Labs: Abnormal lab results 04/05/19 04/05/19 04/06/19 Range/Units 17:03 18:12 15:12 POC Glucose 68 L 153 H 109 H (70-105) Medications & Allergies - Medications Allergies/Adverse Reactions: Allergies No Known Allergies Allergy (Verified 06/28/14 18:10) Home Medications: Home Medications Medication Instructions Recorded Confirmed Last Taken Type Lisinopril [Zestril TAB] 40 mg PO QDAY #30 tablet 11/03/15 04/06/19 12/31/15 Rx Beclomethasone Dipropionate [Qvar] 40 mcg IH Q4-6H PRN 05/09/16 04/06/19 Unknown History Bupropion HCl [Bupropion HCl Sr] 150 mg PO BID 05/09/16 04/06/19 Unknown History Fluticasone (Nf) [Flovent 44 1 puff IH Q4-6H PRN 05/09/16 04/06/19 Unknown History MCG/PUFF HFA] Pravastatin Sodium [Pravastatin] 20 mg PO QHS 05/09/16 04/06/19 Unknown History amLODIPine [Norvasc] 10 mg PO DAILY 05/09/16 04/06/19 Unknown History hydroCHLOROthiazide [HCTZ] 25 mg PO QDAY 05/09/16 04/06/19 Unknown History traMADol [Ultram 50 MG tab] 50 mg PO Q6HR PRN #20 tablet 05/09/16 04/06/19 Unknown Rx Active Medications: Generic Name Dose Route Start Last Admin Trade Name Freq PRN Reason Stop Dose Admin Amlodipine Besylate 10 mg 04/04/19 21:00 04/06/19 11:26 Amlodipine PO 10 mg DAILY NOLAN Administration Bupropion HCl 150 mg 04/04/19 22:00 04/06/19 11:26 Wellbutrin Sr PO 150 mg BID NOLAN Administration Enoxaparin Sodium 40 mg 04/05/19 22:00 04/05/19 23:16 Enoxaparin SUB-Q 40 mg QDAY@2200 NOLAN Administration Hydrochlorothiazide 25 mg 04/04/19 21:00 04/06/19 11:26 Hctz PO 25 mg QDAY NOLAN Administration Sodium Chloride 1,000 mls @ 75 mls/hr 04/05/19 06:00 Nacl 0.9% 1000 Ml IV DIRECT NOLAN Insulin Human Lispro 0 unit 04/05/19 07:30 04/06/19 12:10 Humalog SUB-Q Not Given ACHS [facility] Protocol Lisinopril 40 mg 04/04/19 21:00 04/06/19 11:26 Zestril PO 40 mg QDAY NOLAN Administration Miscellaneous Medication 40 mcg 04/04/19 20:41 Beclomethasone Dipropionate [Qvar] IH Q6H PRN Shortness Of Breath Miscellaneous Medication 1 puff 04/04/19 20:41 Fluticasone (Nf) IH Q4-6H PRN Shortness Of Breath Pravastatin Sodium 20 mg 04/04/19 22:00 04/05/19 23:16 Pravachol PO 20 mg QHS NOLAN Administration Tramadol HCl 50 mg 04/04/19 20:41 04/05/19 23:16 Ultram PO 50 mg Q6HR PRN Administration PAIN
[2019-04-06] MEDS: CLOPIDOGREL 75 MG TAB PO SCH (15:57)
[2019-04-06] MEDS: ENOXAPARIN 40 MG/0.4 ML INJ SUB-Q SCH (23:06)
[2019-04-06] MEDS: PRAVASTATIN 20 MG TAB PO SCH (23:06)
[2019-04-06] MEDS: traMADol 50 MG TAB PO PRN (23:07)
[2019-04-07] MEDS ORDERED: BUDESONIDE 0.5 MG/2 ML NEBU IH SCH (08:00)
[2019-04-07] MEDS: INSULIN LISPRO 100 UNIT/ML SUB-Q SCH ×4 (08:31→21:27)
[2019-04-07] MEDS: LISINOPRIL 40 MG TAB PO SCH (09:27)
[2019-04-07] MEDS: hydroCHLOROthiazide 25 MG TAB PO SCH (09:27)
[2019-04-07] MEDS: buPROPion SR 150 MG TAB PO SCH ×2 (09:30→21:28)
[2019-04-07] MEDS: CLOPIDOGREL 75 MG TAB PO SCH (09:30)
[2019-04-07] MEDS: amLODIPine 10 MG TAB PO SCH (09:30)
[2019-04-07] MEDS ORDERED: PNEUMOCOCCAL 23 Valent 0.5 ML VIAL IM ONE (12:00)
[2019-04-07] MEDS ORDERED: FLU VACC QUAD 2019-20 (3 YR UP)/PF 60 MCG/0.5 ML SYRINGE IM ONE (12:00)
--- NOTE | 2019-04-07 15:22 | Progress Note ---
Assessment and Plan Assessment and plan: Patient is a 74 yo man with history of hypertension, DM type 2, GERD, asthma, OA, prior TB treatment and CKD who presents syncope after nausea, warm feeling with SOB. v/q scan reported low probability for PE * TTE Conclusions: Global LV systolic function is at the lower limits of normal, estimated EF 50-55%, the basal anteroseptal, basal inferoseptal wall segments are hypokinectic suggesting the presence of CAD, mild concentric LVH, trace MR, left atrium is mildly dilated, a prominent eustachian valve is noted in the right atrium. 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 Type 2 diabetes mellitus: SSI Coverage for now HLD (hyperlipidemia): Cont statins Hyponatremia, hypovolemia: treat with IVFs, monitor bmp closely Chronic pain: Cont Tramadol prn Depression: COnt Bupropion Allergic rhinitis: Cont Flonase Asthma by history: Qvar prn DVT/GERD prophylaxis: on Lovenox and GI prophylaxis full code Disposition: continue inpatient care await SNF placement History Interval history: Patient was seen and examined. Follow-up on current diagnosis of Syncope. Overnight uneventful. Patient denies any chest pain, shortness of breath, nausea/vomiting or severe headaches. Imaging, nursing note, chart, labs and old chart reviewed. Discussed with patient. Hospitalist Physical - Physical exam Narrative exam: GEN: WDWN, NAD, Awake, Alert, Orientated HEENT: NCAT, EOMI, PERRL, OP Clear NECK: supple, no adenopathy, no thyromegaly, no JVD CVS/HEART: RRR, normal S1S2, pulses present bilaterally CHEST/LUNGS: CTA B, Symmetrical chest expansion, good air entry bilaterally GI/Abdomen: soft, NTND, good bowel sounds, no guarding or rebound /Bladder: no suprapubic tenderness, no CVA or paraspinal tenderness EXT/Skin: no c/c/e, no obvious rash MSK: FROM x 4 Neuro: CN 2-12 grossly intact, no new focal deficits Psych: calm - Constitutional Vitals: Temp Pulse Resp BP Pulse Ox 98.0 F 97 H 18 149/90 98 04/07/19 04:01 04/07/19 09:30 04/07/19 08:17 04/07/19 09:30 04/07/19 08:17 General appearance: Present: no acute distress Results - Labs CBC & Chem 7: 04/04/19 14:27 04/05/19 06:03 Labs: Laboratory Last Values WBC 5.7 K/mm3 (4.5-11.0) 04/04/19 14:27 RBC 4.42 M/mm3 (3.65-5.03) 04/04/19 14:27 Hgb 10.5 gm/dl (11.8-15.2) L 04/04/19 14:27 Hct 33.6 % (35.5-45.6) L 04/04/19 14:27 MCV 76 fl (84-94) L 04/04/19 14:27 MCH 24 pg (28-32) L 04/04/19 14:27 MCHC 31 % (32-34) L 04/04/19 14:27 RDW 18.2 % (13.2-15.2) H 04/04/19 14:27 Plt Count 411 K/mm3 (140-440) 04/04/19 14:27 Lymph % (Auto) 15.7 % (13.4-35.0) 04/04/19 14:27 [place] % (Auto) 11.4 % (0.0-7.3) H 04/04/19 14:27 Eos % (Auto) 2.5 % (0.0-4.3) 04/04/19 14:27 Baso % (Auto) 1.0 % (0.0-1.8) 04/04/19 14:27 Lymph # 0.9 K/mm3 (1.2-5.4) L 04/04/19 14:27 [place] # 0.6 K/mm3 (0.0-0.8) 04/04/19 14:27 Eos # 0.1 K/mm3 (0.0-0.4) 04/04/19 14:27 Baso # 0.1 K/mm3 (0.0-0.1) 04/04/19 14:27 Seg Neutrophils % 69.4 % (40.0-70.0) 04/04/19 14:27 Seg Neutrophils # 3.9 K/mm3 (1.8-7.7) 04/04/19 14:27 D-Dimer > 43840 ng/mlDDU (0-234) H 04/04/19 14:27 Sodium 135 mmol/L (137-145) L 04/05/19 06:03 Potassium 4.1 mmol/L (3.6-5.0) 04/05/19 06:03 Chloride 100.8 mmol/L (98-107) 04/05/19 06:03 Carbon Dioxide 21 mmol/L (22-30) L 04/05/19 06:03 Anion Gap 17 mmol/L 04/05/19 06:03 BUN 19 mg/dL (9-20) 04/05/19 06:03 Creatinine 1.6 mg/dL (0.8-1.5) H 04/05/19 06:03 Estimated GFR 52 ml/min 04/05/19 06:03 BUN/Creatinine Ratio 12 % 04/05/19 06:03 Glucose 83 mg/dL (75-100) 04/05/19 06:03 POC Glucose 75 (70-105) 04/07/19 11:54 Calcium 9.3 mg/dL (8.4-10.2) 04/05/19 06:03 Total Bilirubin 0.20 mg/dL (0.1-1.2) 04/04/19 14:27 AST 16 units/L (5-40) 04/04/19 14:27 ALT 8 units/L (7-56) 04/04/19 14:27 Alkaline Phosphatase 75 units/L (35-129) 04/04/19 14:27 Total Creatine Kinase 209 units/L (55-170) H 04/04/19 14:27 CK-MB (CK-2) 6.8 ng/mL (0.0-4.0) H 04/04/19 14:27 CK-MB (CK-2) Rel Index 3.2 (0-4) 04/04/19 14:27 Troponin T 0.050 ng/mL (0.00-0.029) H 04/05/19 08:24 Total Protein 7.9 g/dL (6.3-8.2) 04/04/19 14:27 Albumin 3.1 g/dL (3.9-5) L 04/04/19 14:27 Albumin/Globulin Ratio 0.6 % 04/04/19 14:27 Triglycerides 51 mg/dL (2-149) 04/04/19 14:27 Cholesterol 144 mg/dL (50-199) 04/04/19 14:27 LDL Cholesterol Direct 108 mg/dL (50-130) 04/04/19 14:27 HDL Cholesterol 29 mg/dL (40-59) L 04/04/19 14:27 Cholesterol/HDL Ratio 4.96 % 04/04/19 14:27 Urine Color Yellow (Yellow) 04/05/19 Unknown Urine Turbidity Clear (Clear) 04/05/19 Unknown Urine pH 6.0 (5.0-7.0) 04/05/19 Unknown Ur Specific [place] 1.023 (1.003-1.030) 04/05/19 Unknown Urine Protein <15 mg/dl mg/dL (Negative) 04/05/19 Unknown Urine Glucose (UA) Neg mg/dL (Negative) 04/05/19 Unknown Urine Ketones Neg mg/dL (Negative) 04/05/19 Unknown Urine Blood Neg (Negative) 04/05/19 Unknown Urine Nitrite Neg (Negative) 04/05/19 Unknown Urine Bilirubin Neg (Negative) 04/05/19 Unknown Urine Urobilinogen < 2.0 mg/dL (<2.0) 04/05/19 Unknown Ur Leukocyte Esterase Neg (Negative) 04/05/19 Unknown Urine WBC (Auto) 1.0 /HPF (0.0-6.0) 04/05/19 Unknown Urine RBC (Auto) 1.0 /HPF (0.0-6.0) 04/05/19 Unknown U Epithel Cells (Auto) < 1.0 /HPF (0-13.0) 04/05/19 Unknown Urine Mucus Few /HPF 04/05/19 Unknown Active Medications - Current Medications Current Medications: Generic Name Dose Route Start Last Admin Trade Name Freq PRN Reason Stop Dose Admin Amlodipine Besylate 10 mg 04/04/19 21:00 04/07/19 09:30 Amlodipine PO 10 mg DAILY NOLAN Administration Budesonide 0.5 mg 04/07/19 09:00 Pulmicort IH Q12HRT NOLAN Bupropion HCl 150 mg 04/04/19 22:00 04/07/19 09:30 Wellbutrin Sr PO 150 mg BID NOLAN Administration Clopidogrel Bisulfate 75 mg 04/06/19 16:00 04/07/19 09:30 Plavix PO 75 mg QDAY NOLAN Administration Enoxaparin Sodium 40 mg 04/05/19 22:00 04/06/19 23:06 Enoxaparin SUB-Q 40 mg QDAY@2200 NOLAN Administration Hydrochlorothiazide 25 mg 04/04/19 21:00 04/07/19 09:27 Hctz PO 25 mg QDAY NOLAN Administration Sodium Chloride 1,000 mls @ 75 mls/hr 04/05/19 06:00 Nacl 0.9% 1000 Ml IV DIRECT [facility] Insulin Human Lispro 0 unit 04/05/19 07:30 04/07/19 12:03 Humalog SUB-Q Not Given ACHS [facility] Protocol Lisinopril 40 mg 04/04/19 21:00 04/07/19 09:27 Zestril PO 40 mg QDAY NOLAN Administration Pravastatin Sodium 20 mg 04/04/19 22:00 04/06/19 23:06 Pravachol PO 20 mg QHS NOLAN Administration Tramadol HCl 50 mg 04/04/19 20:41 04/06/19 23:07 Ultram PO 50 mg Q6HR PRN Administration PAIN
[2019-04-07] MEDS: BUDESONIDE 0.5 MG/2 ML NEBU IH SCH ×2 (15:35→22:20)
[2019-04-07] MEDS: ENOXAPARIN 40 MG/0.4 ML INJ SUB-Q SCH (21:27)
[2019-04-07] MEDS: PRAVASTATIN 20 MG TAB PO SCH (21:28)
[2019-04-07] MEDS: traMADol 50 MG TAB PO PRN (21:29)
[2019-04-08] MEDS: traMADol 50 MG TAB PO PRN ×2 (03:16→21:20)
[2019-04-08 07:44] LABS: Hematocrit 34.2 % (35.5-45.6); Mean Corpuscular HGB Conc 32 % (32-34); Mean Corpuscular Volume 75 fl (84-94); Platelet Count 412 K/mm3 (140-440); Red Blood Count 4.57 M/mm3 (3.65-5.03); Red Cell Distribution Width 17.6 % (13.2-15.2)
[2019-04-08 08:09] LABS: Calcium 9.3 mg/dL (8.4-10.2)
[2019-04-08] MEDS: INSULIN LISPRO 100 UNIT/ML SUB-Q SCH ×4 (08:11→21:19)
[2019-04-08] MEDS: BUDESONIDE 0.5 MG/2 ML NEBU IH SCH ×2 (08:39→21:48)
[2019-04-08] MEDS: buPROPion SR 150 MG TAB PO SCH ×2 (09:40→21:20)
[2019-04-08] MEDS: CLOPIDOGREL 75 MG TAB PO SCH (09:40)
[2019-04-08] MEDS: hydroCHLOROthiazide 25 MG TAB PO SCH (09:40)
[2019-04-08] MEDS: LISINOPRIL 40 MG TAB PO SCH (09:41)
[2019-04-08] MEDS: amLODIPine 10 MG TAB PO SCH (09:41)
--- NOTE | 2019-04-08 13:43 | Progress Note ---
Assessment and Plan Assessment and plan: Patient is a 74 yo man with history of hypertension, DM type 2, GERD, asthma, OA, prior TB treatment and CKD who presents syncope after nausea, warm feeling with SOB. v/q scan reported low probability for PE * TTE Conclusions: Global LV systolic function is at the lower limits of normal, estimated EF 50-55%, the basal anteroseptal, basal inferoseptal wall segments are hypokinectic suggesting the presence of CAD, mild concentric LVH, trace MR, left atrium is mildly dilated, a prominent eustachian valve is noted in the right atrium. 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 Type 2 diabetes mellitus: SSI Coverage for now HLD (hyperlipidemia): Cont statins Hyponatremia, hypovolemia: treat with IVFs, monitor bmp closely Chronic pain: Cont Tramadol prn Depression: COnt Bupropion Allergic rhinitis: Cont Flonase Asthma by history: Qvar prn DVT/GERD prophylaxis: on Lovenox and GI prophylaxis full code Disposition: continue inpatient care await SNF placement History Interval history: Patient was seen and examined. Follow-up on current diagnosis of Syncope. Overnight uneventful. Patient denies any chest pain, shortness of breath, nausea/vomiting or severe headaches. Imaging, nursing note, chart, labs and old chart reviewed. Discussed with patient. Hospitalist Physical - Physical exam Narrative exam: GEN: WDWN, NAD, Awake, Alert, Orientated HEENT: NCAT, EOMI, PERRL, OP Clear NECK: supple, no adenopathy, no thyromegaly, no JVD CVS/HEART: RRR, normal S1S2, pulses present bilaterally CHEST/LUNGS: CTA B, Symmetrical chest expansion, good air entry bilaterally GI/Abdomen: soft, NTND, good bowel sounds, no guarding or rebound /Bladder: no suprapubic tenderness, no CVA or paraspinal tenderness EXT/Skin: no c/c/e, no obvious rash MSK: FROM x 4 Neuro: CN 2-12 grossly intact, no new focal deficits Psych: calm - Constitutional Vitals: Temp Pulse Resp BP Pulse Ox 97.6 F 92 H 18 136/85 95 04/08/19 07:50 04/08/19 10:00 04/08/19 09:00 04/08/19 09:41 04/08/19 08:00 General appearance: Present: no acute distress Results - Labs CBC & Chem 7: 04/08/19 07:12 04/08/19 07:12 Labs: Laboratory Last Values WBC 5.6 K/mm3 (4.5-11.0) 04/08/19 07:12 RBC 4.57 M/mm3 (3.65-5.03) 04/08/19 07:12 Hgb 11.0 gm/dl (11.8-15.2) L 04/08/19 07:12 Hct 34.2 % (35.5-45.6) L 04/08/19 07:12 MCV 75 fl (84-94) L 04/08/19 07:12 MCH 24 pg (28-32) L 04/08/19 07:12 MCHC 32 % (32-34) 04/08/19 07:12 RDW 17.6 % (13.2-15.2) H 04/08/19 07:12 Plt Count 412 K/mm3 (140-440) 04/08/19 07:12 Lymph % (Auto) 15.7 % (13.4-35.0) 04/04/19 14:27 [place] % (Auto) 11.4 % (0.0-7.3) H 04/04/19 14:27 Eos % (Auto) 2.5 % (0.0-4.3) 04/04/19 14:27 Baso % (Auto) 1.0 % (0.0-1.8) 04/04/19 14:27 Lymph # 0.9 K/mm3 (1.2-5.4) L 04/04/19 14:27 [place] # 0.6 K/mm3 (0.0-0.8) 04/04/19 14:27 Eos # 0.1 K/mm3 (0.0-0.4) 04/04/19 14:27 Baso # 0.1 K/mm3 (0.0-0.1) 04/04/19 14:27 Seg Neutrophils % 69.4 % (40.0-70.0) 04/04/19 14:27 Seg Neutrophils # 3.9 K/mm3 (1.8-7.7) 04/04/19 14:27 D-Dimer > 14130 ng/mlDDU (0-234) H 04/04/19 14:27 Sodium 132 mmol/L (137-145) L 04/08/19 07:12 Potassium 4.0 mmol/L (3.6-5.0) 04/08/19 07:12 Chloride 97.6 mmol/L (98-107) L 04/08/19 07:12 Carbon Dioxide 20 mmol/L (22-30) L 04/08/19 07:12 Anion Gap 18 mmol/L 04/08/19 07:12 BUN 15 mg/dL (9-20) 04/08/19 07:12 Creatinine 1.5 mg/dL (0.8-1.5) 04/08/19 07:12 Estimated GFR 56 ml/min 04/08/19 07:12 BUN/Creatinine Ratio 10 % 04/08/19 07:12 Glucose 85 mg/dL (75-100) 04/08/19 07:12 POC Glucose 86 (70-105) 04/08/19 11:41 Calcium 9.3 mg/dL (8.4-10.2) 04/08/19 07:12 Total Bilirubin 0.20 mg/dL (0.1-1.2) 04/04/19 14:27 AST 16 units/L (5-40) 04/04/19 14:27 ALT 8 units/L (7-56) 04/04/19 14:27 Alkaline Phosphatase 75 units/L (35-129) 04/04/19 14:27 Total Creatine Kinase 209 units/L (55-170) H 04/04/19 14:27 CK-MB (CK-2) 6.8 ng/mL (0.0-4.0) H 04/04/19 14:27 CK-MB (CK-2) Rel Index 3.2 (0-4) 04/04/19 14:27 Troponin T 0.050 ng/mL (0.00-0.029) H 04/05/19 08:24 Total Protein 7.9 g/dL (6.3-8.2) 04/04/19 14:27 Albumin 3.1 g/dL (3.9-5) L 04/04/19 14:27 Albumin/Globulin Ratio 0.6 % 04/04/19 14:27 Triglycerides 51 mg/dL (2-149) 04/04/19 14:27 Cholesterol 144 mg/dL (50-199) 04/04/19 14:27 LDL Cholesterol Direct 108 mg/dL (50-130) 04/04/19 14:27 HDL Cholesterol 29 mg/dL (40-59) L 04/04/19 14:27 Cholesterol/HDL Ratio 4.96 % 04/04/19 14:27 Urine Color Yellow (Yellow) 04/05/19 Unknown Urine Turbidity Clear (Clear) 04/05/19 Unknown Urine pH 6.0 (5.0-7.0) 04/05/19 Unknown Ur Specific [place] 1.023 (1.003-1.030) 04/05/19 Unknown Urine Protein <15 mg/dl mg/dL (Negative) 04/05/19 Unknown Urine Glucose (UA) Neg mg/dL (Negative) 04/05/19 Unknown Urine Ketones Neg mg/dL (Negative) 04/05/19 Unknown Urine Blood Neg (Negative) 04/05/19 Unknown Urine Nitrite Neg (Negative) 04/05/19 Unknown Urine Bilirubin Neg (Negative) 04/05/19 Unknown Urine Urobilinogen < 2.0 mg/dL (<2.0) 04/05/19 Unknown Ur Leukocyte Esterase Neg (Negative) 04/05/19 Unknown Urine WBC (Auto) 1.0 /HPF (0.0-6.0) 04/05/19 Unknown Urine RBC (Auto) 1.0 /HPF (0.0-6.0) 04/05/19 Unknown U Epithel Cells (Auto) < 1.0 /HPF (0-13.0) 04/05/19 Unknown Urine Mucus Few /HPF 04/05/19 Unknown Active Medications - Current Medications Current Medications: Generic Name Dose Route Start Last Admin Trade Name Freq PRN Reason Stop Dose Admin Amlodipine Besylate 10 mg 04/04/19 21:00 04/08/19 09:41 Amlodipine PO 10 mg DAILY NOLAN Administration Budesonide 0.5 mg 04/07/19 09:00 04/08/19 08:39 Pulmicort IH 0.5 mg Q12HRT NOLAN Administration Bupropion HCl 150 mg 04/04/19 22:00 04/08/19 09:40 Wellbutrin Sr PO 150 mg BID NOLAN Administration Clopidogrel Bisulfate 75 mg 04/06/19 16:00 04/08/19 09:40 Plavix PO 75 mg QDAY NOLAN Administration Enoxaparin Sodium 40 mg 04/05/19 22:00 04/07/19 21:27 Enoxaparin SUB-Q 40 mg QDAY@2200 NOLAN Administration Hydrochlorothiazide 25 mg 04/04/19 21:00 04/08/19 09:40 Hctz PO 25 mg QDAY NOLAN Administration Sodium Chloride 1,000 mls @ 75 mls/hr 04/05/19 06:00 Nacl 0.9% 1000 Ml IV DIRECT [facility] Insulin Human Lispro 0 unit 04/05/19 07:30 04/08/19 12:05 Humalog SUB-Q Not Given ACHS [facility] Protocol Lisinopril 40 mg 04/04/19 21:00 04/08/19 09:41 Zestril PO 40 mg QDAY NOLAN Administration Pravastatin Sodium 20 mg 04/04/19 22:00 04/07/19 21:28 Pravachol PO 20 mg QHS NOLAN Administration Tramadol HCl 50 mg 04/04/19 20:41 04/08/19 03:16 Ultram PO 50 mg Q6HR PRN Administration PAIN
[2019-04-08] MEDS: PRAVASTATIN 20 MG TAB PO SCH (21:20)
[2019-04-08] MEDS: ENOXAPARIN 40 MG/0.4 ML INJ SUB-Q SCH (21:20)
[2019-04-09] MEDS: BUDESONIDE 0.5 MG/2 ML NEBU IH SCH ×2 (07:43→20:08)
[2019-04-09] MEDS ORDERED: DEXTROSE 50% IN WATER (25GM) 50 ML VIAL IV ONE (09:02)
[2019-04-09] MEDS: INSULIN LISPRO 100 UNIT/ML SUB-Q SCH ×4 (09:55→22:06)
[2019-04-09] MEDS: amLODIPine 10 MG TAB PO SCH (09:56)
[2019-04-09] MEDS: CLOPIDOGREL 75 MG TAB PO SCH (09:56)
[2019-04-09] MEDS: LISINOPRIL 40 MG TAB PO SCH (09:57)
[2019-04-09] MEDS: buPROPion SR 150 MG TAB PO SCH ×2 (09:57→22:06)
[2019-04-09] MEDS: hydroCHLOROthiazide 25 MG TAB PO SCH (09:57)
[2019-04-09] MEDS ORDERED: DEXTROSE 50% IN WATER (25GM) 50 ML SYRINGE IV ONE (11:00)
--- NOTE | 2019-04-09 12:39 | Progress Note ---
Assessment and Plan Assessment and plan: Patient is a 74 yo man with history of hypertension, DM type 2, GERD, asthma, OA, prior TB treatment and CKD who presents syncope after nausea, warm feeling with SOB. v/q scan reported low probability for PE * TTE Conclusions: Global LV systolic function is at the lower limits of normal, estimated EF 50-55%, the basal anteroseptal, basal inferoseptal wall segments are hypokinectic suggesting the presence of CAD, mild concentric LVH, trace MR, left atrium is mildly dilated, a prominent eustachian valve is noted in the right atrium. 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 Type 2 diabetes mellitus: SSI Coverage for now HLD (hyperlipidemia): Cont statins Hyponatremia, hypovolemia: treat with IVFs, monitor bmp closely Chronic pain: Cont Tramadol prn Depression: COnt Bupropion Allergic rhinitis: Cont Flonase Asthma by history: Qvar prn DVT/GERD prophylaxis: on Lovenox and GI prophylaxis full code Disposition: continue inpatient care await SNF placement History Interval history: Patient was seen and examined. Follow-up on current diagnosis of Syncope. Overnight uneventful. Patient denies any chest pain, shortness of breath, n ausea/vomiting or severe headaches. Imaging, nursing note, chart, labs and old chart reviewed. Discussed with patient. Hospitalist Physical - Physical exam Narrative exam: GEN: WDWN, NAD, Awake, Alert, Orientated HEENT: NCAT, EOMI, PERRL, OP Clear NECK: supple, no adenopathy, no thyromegaly, no JVD CVS/HEART: RRR, normal S1S2, pulses present bilaterally CHEST/LUNGS: CTA B, Symmetrical chest expansion, good air entry bilaterally GI/Abdomen: soft, NTND, good bowel sounds, no guarding or rebound /Bladder: no suprapubic tenderness, no CVA or paraspinal tenderness EXT/Skin: no c/c/e, no obvious rash MSK: FROM x 4 Neuro: CN 2-12 grossly intact, no new focal deficits Psych: calm - Constitutional Vitals: Temp Pulse Resp BP Pulse Ox 97.9 F 98 H 18 136/89 98 04/09/19 11:34 04/09/19 11:34 04/09/19 11:34 04/09/19 11:34 04/09/19 11:34 General appearance: Present: no acute distress Results - Labs CBC & Chem 7: 04/08/19 07:12 04/08/19 07:12 Labs: Laboratory Last Values WBC 5.6 K/mm3 (4.5-11.0) 04/08/19 07:12 RBC 4.57 M/mm3 (3.65-5.03) 04/08/19 07:12 Hgb 11.0 gm/dl (11.8-15.2) L 04/08/19 07:12 Hct 34.2 % (35.5-45.6) L 04/08/19 07:12 MCV 75 fl (84-94) L 04/08/19 07:12 MCH 24 pg (28-32) L 04/08/19 07:12 MCHC 32 % (32-34) 04/08/19 07:12 RDW 17.6 % (13.2-15.2) H 04/08/19 07:12 Plt Count 412 K/mm3 (140-440) 04/08/19 07:12 Lymph % (Auto) 15.7 % (13.4-35.0) 04/04/19 14:27 Cecil % (Auto) 11.4 % (0.0-7.3) H 04/04/19 14:27 Eos % (Auto) 2.5 % (0.0-4.3) 04/04/19 14:27 Baso % (Auto) 1.0 % (0.0-1.8) 04/04/19 14:27 Lymph # 0.9 K/mm3 (1.2-5.4) L 04/04/19 14:27 Cecil # 0.6 K/mm3 (0.0-0.8) 04/04/19 14:27 Eos # 0.1 K/mm3 (0.0-0.4) 04/04/19 14:27 Baso # 0.1 K/mm3 (0.0-0.1) 04/04/19 14:27 Seg Neutrophils % 69.4 % (40.0-70.0) 04/04/19 14:27 Seg Neutrophils # 3.9 K/mm3 (1.8-7.7) 04/04/19 14:27 D-Dimer > 58313 ng/mlDDU (0-234) H 04/04/19 14:27 Sodium 132 mmol/L (137-145) L 04/08/19 07:12 Potassium 4.0 mmol/L (3.6-5.0) 04/08/19 07:12 Chloride 97.6 mmol/L (98-107) L 04/08/19 07:12 Carbon Dioxide 20 mmol/L (22-30) L 04/08/19 07:12 Anion Gap 18 mmol/L 04/08/19 07:12 BUN 15 mg/dL (9-20) 04/08/19 07:12 Creatinine 1.5 mg/dL (0.8-1.5) 04/08/19 07:12 Estimated GFR 56 ml/min 04/08/19 07:12 BUN/Creatinine Ratio 10 % 04/08/19 07:12 Glucose 85 mg/dL (75-100) 04/08/19 07:12 POC Glucose 66 (70-105) L 04/09/19 07:45 Calcium 9.3 mg/dL (8.4-10.2) 04/08/19 07:12 Total Bilirubin 0.20 mg/dL (0.1-1.2) 04/04/19 14:27 AST 16 units/L (5-40) 04/04/19 14:27 ALT 8 units/L (7-56) 04/04/19 14:27 Alkaline Phosphatase 75 units/L (35-129) 04/04/19 14:27 Total Creatine Kinase 209 units/L (55-170) H 04/04/19 14:27 CK-MB (CK-2) 6.8 ng/mL (0.0-4.0) H 04/04/19 14:27 CK-MB (CK-2) Rel Index 3.2 (0-4) 04/04/19 14:27 Troponin T 0.050 ng/mL (0.00-0.029) H 04/05/19 08:24 Total Protein 7.9 g/dL (6.3-8.2) 04/04/19 14:27 Albumin 3.1 g/dL (3.9-5) L 04/04/19 14:27 Albumin/Globulin Ratio 0.6 % 04/04/19 14:27 Triglycerides 51 mg/dL (2-149) 04/04/19 14:27 Cholesterol 144 mg/dL (50-199) 04/04/19 14:27 LDL Cholesterol Direct 108 mg/dL (50-130) 04/04/19 14:27 HDL Cholesterol 29 mg/dL (40-59) L 04/04/19 14:27 Cholesterol/HDL Ratio 4.96 % 04/04/19 14:27 Urine Color Yellow (Yellow) 04/05/19 Unknown Urine Turbidity Clear (Clear) 04/05/19 Unknown Urine pH 6.0 (5.0-7.0) 04/05/19 Unknown Ur Specific [place] 1.023 (1.003-1.030) 04/05/19 Unknown Urine Protein <15 mg/dl mg/dL (Negative) 04/05/19 Unknown Urine Glucose (UA) Neg mg/dL (Negative) 04/05/19 Unknown Urine Ketones Neg mg/dL (Negative) 04/05/19 Unknown Urine Blood Neg (Negative) 04/05/19 Unknown Urine Nitrite Neg (Negative) 04/05/19 Unknown Urine Bilirubin Neg (Negative) 04/05/19 Unknown Urine Urobilinogen < 2.0 mg/dL (<2.0) 04/05/19 Unknown Ur Leukocyte Esterase Neg (Negative) 04/05/19 Unknown Urine WBC (Auto) 1.0 /HPF (0.0-6.0) 04/05/19 Unknown Urine RBC (Auto) 1.0 /HPF (0.0-6.0) 04/05/19 Unknown U Epithel Cells (Auto) < 1.0 /HPF (0-13.0) 04/05/19 Unknown Urine Mucus Few /HPF 04/05/19 Unknown Active Medications - Current Medications Current Medications: Generic Name Dose Route Start Last Admin Trade Name Freq PRN Reason Stop Dose Admin Amlodipine Besylate 10 mg 04/04/19 21:00 04/09/19 09:56 Amlodipine PO 10 mg DAILY NOLAN Administration Budesonide 0.5 mg 04/07/19 09:00 04/09/19 07:43 Pulmicort IH 0.5 mg Q12HRT NOLAN Administration Bupropion HCl 150 mg 04/04/19 22:00 04/09/19 09:57 Wellbutrin Sr PO 150 mg BID NOLAN Administration Clopidogrel Bisulfate 75 mg 04/06/19 16:00 04/09/19 09:56 Plavix PO 75 mg QDAY NOLAN Administration Enoxaparin Sodium 40 mg 04/05/19 22:00 04/08/19 21:20 Enoxaparin SUB-Q 40 mg QDAY@2200 NOLAN Administration Hydrochlorothiazide 25 mg 04/04/19 21:00 04/09/19 09:57 Hctz PO 25 mg QDAY NOLAN Administration Sodium Chloride 1,000 mls @ 75 mls/hr 04/05/19 06:00 Nacl 0.9% 1000 Ml IV DIRECT NOLAN Insulin Human Lispro 0 unit 04/05/19 07:30 04/09/19 09:55 Humalog SUB-Q Not Given [facility] Protocol Lisinopril 40 mg 04/04/19 21:00 04/09/19 09:57 Zestril PO 40 mg QDAY NOLAN Administration Pravastatin Sodium 20 mg 04/04/19 22:00 04/08/19 21:20 Pravachol PO 20 mg QHS NOLAN Administration Tramadol HCl 50 mg 04/04/19 20:41 04/08/19 21:20 Ultram PO 50 mg Q6HR PRN Administration PAIN
[2019-04-09] MEDS: ENOXAPARIN 40 MG/0.4 ML INJ SUB-Q SCH (22:05)
[2019-04-09] MEDS: PRAVASTATIN 20 MG TAB PO SCH (22:06)
[2019-04-09] MEDS: traMADol 50 MG TAB PO PRN (22:16)
[2019-04-10] MEDS: INSULIN LISPRO 100 UNIT/ML SUB-Q SCH ×3 (08:33→17:17)
[2019-04-10] MEDS: amLODIPine 10 MG TAB PO SCH (09:38)
[2019-04-10 09:39] VITALS: BP 123/79
[2019-04-10] MEDS: LISINOPRIL 40 MG TAB PO SCH (09:39)
[2019-04-10] MEDS: buPROPion SR 150 MG TAB PO SCH (09:39)
[2019-04-10] MEDS: hydroCHLOROthiazide 25 MG TAB PO SCH (09:39)
[2019-04-10] MEDS: CLOPIDOGREL 75 MG TAB PO SCH (09:39)
[2019-04-10] MEDS: traMADol 50 MG TAB PO PRN (09:43)
[2019-04-10] MEDS: BUDESONIDE 0.5 MG/2 ML NEBU IH SCH (11:10)
--- NOTE | 2019-04-10 13:14 | Discharge Summary ---
Providers - Providers Date of Admission: 04/04/19 18:29 Attending physician: DAVI NIETO MD 04/05/19 10:03 Consult to Physician [CONS] Routine Comment: Consulting Provider: TWYLA GUZMÁN Physician Instructions: Reason For Exam: left ICA occlusion with thrombosis 04/05/19 13:26 Physical Therapy Evaluation and Treat [CONS] Routine Comment: Reason For Exam: weakness/ falls 04/05/19 13:27 Occupational Therapy Evaluate and Treat [CONS] Routine Comment: Reason For Exam: weakness/falls Primary care physician: PROOFER Hospitalization Reason for admission: syncope Condition: Stable Hospital course: Patient is a 74 yo man with history of hypertension, DM type 2, GERD, asthma, OA, prior TB treatment and CKD who presents syncope after nausea, warm feeling with SOB. v/q scan reported low probability for PE * TTE Conclusions: Global LV systolic function is at the lower limits of normal, estimated EF 50-55%, the basal anteroseptal, basal inferoseptal wall segments are hypokinectic suggesting the presence of CAD, mild concentric LVH, trace MR, left atrium is mildly dilated, a prominent eustachian valve is noted in the right atrium. 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 Type 2 diabetes mellitus: Blood glucose suddenly elevated today but improved with coverage, will continue withSSI Coverage for now HLD (hyperlipidemia): Cont statins Hyponatremia, hypovolemia: treat with IVFs, monitor bmp closely Chronic pain: Cont Tramadol prn Depression: COnt Bupropion Allergic rhinitis: Cont Flonase Asthma by history: Qvar prn Disposition: DC/[place]-03 SNF [facility] Time spent for discharge: 35 mins Core Measure Documentation - Palliative Care Palliative Care/ Comfort Measures: Not Applicable - Core Measures Any of the following diagnoses?: none Exam - Physical Exam Narrative exam: GEN: WDWN, NAD, Awake, Alert, Orientated HEENT: NCAT, EOMI, PERRL, OP Clear NECK: supple, no adenopathy, no thyromegaly, no JVD CVS/HEART: RRR, normal S1S2, pulses present bilaterally CHEST/LUNGS: CTA B, Symmetrical chest expansion, good air entry bilaterally GI/Abdomen: soft, NTND, good bowel sounds, no guarding or rebound /Bladder: no suprapubic tenderness, no CVA or paraspinal tenderness EXT/Skin: no c/c/e, no obvious rash MSK: FROM x 4 Neuro: CN 2-12 grossly intact, no new focal deficits Psych: calm - Constitutional Vitals: Temp Pulse Resp BP Pulse Ox 97.9 F 82 18 123/79 99 04/10/19 07:24 04/10/19 10:00 04/10/19 10:00 04/10/19 09:39 04/10/19 10:00 Plan Activity: advance as tolerated, fall precautions Diet: low fat, diabetic Special Instructions: record daily BP diary, record blood sugar diary Follow up with: PRIMARY CAREMD [Primary Care Provider] - 3-5 Days ROBERT GREGORIO MD [Staff Physician] - 7 Days Prescriptions: Clopidogrel [Plavix] 75 mg PO QDAY #30 tablet traMADoL [Ultram 50 MG tab] 50 mg PO Q6HR PRN #20 tablet PRN Reason: Pain
== END 2019-04-10 18:04 | DRG 682 ==
LOC: ED 13:58 → 4A 18:29
PROVIDERS: ADMIT Internal Medicine; ATTEND Internal Medicine
PROC: 3E0234Z Introduction of Serum, Toxoid and Vaccine into Muscle, Percutaneous Approach (ICD-10-PCS; principal; 2019-04-07)
DX: N17.0 Acute kidney failure with tubular necrosis (principal); I21.A1 Myocardial infarction type 2; E87.1 Hypo-osmolality and hyponatremia; F32.9 Major depressive disorder, single episode, unspecified; E78.2 Mixed hyperlipidemia; G89.29 Other chronic pain; J30.89 Other allergic rhinitis; J45.20 Mild intermittent asthma, uncomplicated; N18.9 Chronic kidney disease, unspecified; E86.1 Hypovolemia; E78.5 Hyperlipidemia, unspecified; I65.22 Occlusion and stenosis of left carotid artery; E11.22 Type 2 diabetes mellitus with diabetic chronic kidney disease; I12.9 Hypertensive chronic kidney disease with stage 1 through stage 4 chronic kidney disease, or unspecified chronic kidney disease; K21.9 Gastro-esophageal reflux disease without esophagitis; Z79.899 Other long term (current) drug therapy; Z23 Encounter for immunization; Z79.84 Long term (current) use of oral hypoglycemic drugs
CPT/HCPCS: 36415; 70450; 70496; 70498; 71045; 78452; 78582; 80048; 80053; 80061; 81001; 82550; 82553; 82962; 83036; 84484; 85025; 85027; 85379; 90686; 90732; 93005; 93010; 93017; 93306; 93880; 94640; 96360; G0378; A9270-GY; A9502; A9540; A9558; J1650; J1815; J2785; Q9967